=== PATIENT | female | born 2000 | race Caucasian/White ===

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

== ENCOUNTER 2021-04-26 09:48 | Emergency (ER) | payer OTHER, SELFPAY ==
[2021-04-26] VITALS (14 sets, daily range): BP systolic 87–107; BP diastolic 53–63; PULSE 64–110; RESP 14–26; TEMP 36.3–36.6; O2SAT 95–100
--- NOTE | ~2021-04-26 | XR_ITS ---
XR chest 2V DATE: 04/26/2021 10:35 INDICATION: Chest pain starting this morning; 20 weeks patient. TECHNIQUE: PA and lateral views COMPARISON: 01/17/2020 CT pulmonary scan 01/17/2020 portable AP chest FINDINGS: Normal heart size. No hilar or mediastinal enlargement. No pulmonary infiltrate or consolid ation, pleural effusion or pulmonary vascular congestion or pneumothorax is detected. IMPRESSION: No active cardiopulmonary disease Reviewed, dictated and finalized at location A. L ROLLER
--- NOTE | 2021-04-26 09:59 | PC.NURSE ---
called ob Noy states she will be over to monitor pt.
--- NOTE | 2021-04-26 10:01 | ECG_ITS ---
Measurements Intervals [place] Rate: 79 P: 32 MN: 132 QRS: 45 QRSD: 73 T: 30 QT: 350 QTc: 402 Interpretive Statements SINUS RHYTHM WITH MARKED SINUS ARRHYTHMIA BORDERLINE ECG Electronically Signed On 04-26-2021 10:07:07 [employer] by Pradip Monaco D.O.
[2021-04-26 10:17] LABS: Basophils Absolute Auto 0.1 K/mm3 (0.0-0.1); Basophils Percent Auto 0.6 % (0.2-1.2); Eosinophils Absolute Auto 0.3 K/mm3 (0-0.3); Eosinophils Percent Auto 1.8 % (0-4.4); Hematocrit 32.5 % (37.0-47.0); Hemoglobin 10.6 g/dL (12.0-15.0); Immature Granulocyte Absolute 0.23 K/mm3 (0.00-0.031); Immature Granulocyte Percent A 1.6 % (0-0.5); Lymphocytes Absolute Auto 3.16 K/mm3 (0.9-3.2); Lymphocytes Percent Auto 21.5 % (18.3-44.2); Mean Corpuscular HGB Conc 32.6 g/dl (32-36); Mean Corpuscular Hemoglobin 27.8 pg (26-34); Mean Corpuscular Volume 85.3 fl (80-100); Monocytes Absolute Auto 1.1 K/mm3 (0.1-0.6); Monocytes Percent Auto 7.2 % (2.6-8.5); Neutrophils Absolute Auto 9.9 K/mm3 (1.3-6.7); Neutrophils Percent Auto 67.3 % (45.5-73.1); Platelet Count Result 249 k/mm3 (150-375); Red Blood Count 3.81 M/mm3 (4.2-5.4); White Blood Count 14.7 K/mm3 (4.5-10.0)
--- NOTE | 2021-04-26 10:20 | ED.CHESTPAIN ---
HPI - Chest Pain General Chief Complaint: Chest Pain Stated Complaint: 20 weeks preg/abd pain Time Seen by Provider: 04/26/21 10:02 Source: patient Mode of arrival: ambulatory Limitations: no limitations History of Present Illness HPI narrative: Patient is a 21-year-old female, at 20 weeks, complaining of upper abdominal pain accompanied by substernal chest pain, 6 out of 10, dull, nonradiating after her dog jumped on her this morning. Patient does states that her chest pain has been ongoing, intermittent, since she had COVID 1 month ago. Patient states that she has had no complications during and has had care Related Data Home Medications Medication Instructions Recorded Confirmed citalopram 20 mg tablet 20 mg PO DAILY tablet 01/20/21 02/06/21 norethindrone (contraceptive) 0.35 0.35 mg PO DAILY tablet 01/20/21 02/06/21 mg tablet Allergies Allergy/AdvReac Type Severity Reaction Status Date / Time No Known Allergies Allergy Verified 01/20/21 07:57 Review of Systems Review of Systems: All systems reviewed & are unremarkable except as noted in HPI and below Constitutional: Constitutional: Denies body ache(s), Denies chills, Denies excessive sweating, Denies fatigue, Denies fever(s), Denies headache(s), Denies lethargy, Denies malaise, Denies weakness and Denies weight loss Eyes: Eyes: Denies blurry vision, Denies change in vision and Denies loss of vision ENT: Denies dizziness, Denies ear discharge, Denies headache(s), Denies lip swelling, Denies epistaxis, Denies nasal congestion, Denies neck pain, Denies throat swelling and Denies tongue swelling Cardiovascular: Cardiovascular: Denies diaphoresis, Denies rapid heart rate, Denies edema, Denies irregular heart rhythm, Denies lightheadedness and Denies palpitations Respiratory: Respiratory: Denies chest congestion, Denies cough and Denies hemoptysis Gastrointestinal: Gastrointestinal: Denies melena, Denies hematochezia, Denies diarrhea, Denies nausea, Denies vomiting and Denies hematemesis Musculoskeletal: Musculoskeletal: Denies abnormal gait, Denies deformity, Denies joint swelling, Denies limited range of motion, Denies neck pain and Denies numbness Neurologic: Denies Abnormal speech present, Denies abnormal gait, Denies confusion, Denies dizziness, Denies headache(s), Denies focal weakness, Denies loss of vision, Denies numbness, Denies Other visual disturbances, Denies Sensory deficit (Neuro) and Denies weakness Psychiatric: Psychiatric: Denies confusion, Denies depression, Denies auditory hallucinations, Denies homicidal ideation and Denies suicidal ideation Endocrine: Endocrine: Denies cold intolerance, Denies excessive sweating, Denies fatigue, Denies heat intolerance and Denies palpitations Hematologic/Lymphatic: Hematologic/Lymphatic: Denies easy bleeding and Denies easy bruising Allergic/Immunologic: Allergic/Immunologic: Denies lip swelling, Denies throat swelling and Denies tongue swelling PMFSH Past Medical History Medical History Complex regional pain syndrome Ganglion cyst of foot Surgical History Surgical History H/O section Family History Family History Sibling Migraines ADHD Asthma Hypermobility of joint Unknown Diabetes mellitus Grandparent Heart disease Social History Social History Smoking status: Never smoker Alcohol intake: current Substance use: never Gender identity (if verbalized by the patient): Female Spiritual care concerns: No Comments Past medical history: Social history: Non-smoker, no EtOH or drug use Exam Const: General: cooperative, healthy appearing, comfortable, no acute distress, well developed, alert and awake; No confusion
[2021-04-26 10:27] LABS: Alanine Aminotransferase 10 U/L (4-35); Albumin Level 3.7 g/dL (3.5-5.1); Alkaline Phosphatase 79 U/L (38-126); Anion Gap 5 mmol/L (8-16); Aspartate Amino Transferase 18 U/L (14-36); Bilirubin,Total 0.2 mg/dL (0.2-1.3); Blood Urea Nitrogen 5 mg/dL (7-17); Calcium 9.1 mg/dL (8.4-10.2); Carbon Dioxide 23 mmol/L (22-30); Chloride 104 mmol/L (98-107); Estimated Glomerular Filt Rate > 60; Glucose 81 mg/dL (65-110); Lipase 37 U/L (23-300); Potassium 3.9 mmol/L (3.4-5.0); Sodium 132 mmol/L (137-145)
[2021-04-26 10:32] LABS: INR 0.9; Prothrombin Time 12.4 Seconds (11.1-14.7)
[2021-04-26 10:33] LABS: Partial Thromboplastin Time 24.4 SECONDS (22.3-36.8)
[2021-04-26 10:39] LABS: Troponin I < 0.012 ng/mL (0.000-0.034)
[2021-04-26] MEDS: SODIUM CHLORIDE 0.9% IV 1,000 ML 999 ML IV CONT (11:33)
== END 2021-04-26 14:00 | disposition home or self-care (01) ==
PROVIDERS: Emergency Provider Emergency Medicine; PCP Family Medicine
DX: O9A.212 Injury, poisoning and certain other consequences of external causes complicating pregnancy, second trimester (principal); R10.10 Upper abdominal pain, unspecified; O26.892 Other specified pregnancy related conditions, second trimester; R07.89 Other chest pain; Z86.16 Personal history of COVID-19; R94.31 Abnormal electrocardiogram [ECG] [EKG]; Z3A.20 20 weeks gestation of pregnancy; W54.1XXA Struck by dog, initial encounter
CPT/HCPCS: 36415; 71046; 80053; 83690; 84484; 85025; 85610; 85730; 93005; 96360; 99284; J7030

== ENCOUNTER 2021-05-30 14:52 | Outpatient (CLI) | payer OTHER, SELFPAY ==
--- NOTE | 2021-05-30 | ECG_ITS ---
Measurements Intervals Ralph Rate: 102 P: 27 NJ: 146 QRS: 45 QRSD: 72 T: 24 QT: 318 QTc: 415 Interpretive Statements SINUS TACHYCARDIA ABNORMAL RHYTHM ECG COMPARED TO ECG 04/26/2021 10:03:22 SINUS TACHYCARDIA NOW PRESENT Electronically Signed On 05-31-2021 11:43:09 CDT by Judith Keith M.D.
== END 2021-05-30 14:53 | disposition home or self-care (01) ==
LOC: ANHCARD 14:55
PROVIDERS: PCP Family Medicine; Visit Provider Obstetrics & Gynecology
DX: O99.412 Diseases of the circulatory system complicating pregnancy, second trimester (principal); Z3A.25 25 weeks gestation of pregnancy
CPT/HCPCS: 93005

== ENCOUNTER 2021-06-28 12:38 | Outpatient (RCR) | payer OTHER, SELFPAY ==
[2021-06-28 13:50] VITALS: BP 93/56; PULSE 113
== END 2021-07-25 08:20 | disposition home or self-care (01) ==
LOC: ANHOBOP 12:38
PROVIDERS: PCP Family Medicine; Visit Provider Obstetrics & Gynecology
DX: Z36.89 Encounter for other specified antenatal screening (principal)
CPT/HCPCS: 59025

== ENCOUNTER 2021-08-17 22:42 | Inpatient (IN) | payer OTHER, SELFPAY ==
--- NOTE | ~2021-08-17 | US_ITS ---
EXAMINATION: US OB limited w BPP DATE: 08/18/2021 08:20 CDT INDICATION: Evaluate well-being. Abdomen pain. TECHNIQUE: Real-time transabdominal obstetric ultrasound. FINDINGS: No prior studies for comparison. There is a single living fetus in vertex presentation. The placenta is anterior without placenta pre via. DALJIT is 8.35 cm (normal range for gestational age is 7.7-24.9 cm). cardiac activity and movement is noted with a heart rate of beats per minute. Biophysical profile: breathin of 2 movement: 2 of 2 tone: 2 of 2 Amniotic flud pocket: 2 of 2 Total score: 8 of 8 IMPRESSION: 1. Single living intrauterine in vertex presentation. 2: Total biophysical profile score of 8/8. 3: Normal DALJIT measures 8.35 cm Reviewed, dictated and finalized at location A.
--- NOTE | ~2021-08-17 | US_ITS ---
EXAMINATION: US renal BI DATE: 08/20/2021 09:29 INDICATION: Back pain, leukocytosis, urinary tract infection TECHNIQUE: Multiple grayscale and Doppler ultrasound images of the kidneys were obtained. COMPARISON: None. FINDINGS: The right kidney measures 12.6 x 6.4 x 6.5 cm. The left kidney measures 12.5 x 4.9 x 5.1 cm . No definite urolithiasis is seen. The kidneys demonstrate normal parenchymal echogenicity. Resistiv e indices in the kidneys are elevated. There is moderate bilateral hydronephrosis. The bladder is nor mal. IMPRESSION: 1. Moderate bilateral hydronephrosis with elevated resistive indices in the kidneys. No definite urol ithiasis identified. Reviewed, dictated and finalized at location A. IMPRESSION: 1. Moderate bilateral hydronephrosis with elevated resistive indices in the kid neys. No definite urolithiasis identified.
[2021-08-17 23:00] VITALS: TEMP 37.6
[2021-08-17 23:30] VITALS: BP 111/62; PULSE 122
[2021-08-17 23:39] VITALS: TEMP 37.6
[2021-08-18] VITALS (84 sets, daily range): BP systolic 92–140; BP diastolic 37–122; PULSE 100–138; RESP 16–20; TEMP 36.3–37.4; O2SAT 95–100
[2021-08-18 00:30] LABS: Appearance Urine Clear (Clear); Bilirubin Urine Negative (Negative); Color Urine Yellow (Yellow); Glucose Urine UA Negative (Negative); Ketones Urine 4+ mg/dL (Negative); Leukocyte Esterase Ur 3+ LEU/UL (Negative); Nitrate Urine Positive (Negative); Protein Urine Trace mg/dL (Negative); Specific Grav Ur 1.015 (1.001-1.035); Urobilinogen Urine 0.2 mg/dL (<2.0)
[2021-08-18 00:35] LABS: Bacteria Urine Trace /hpf; Mucus Urine Rare /lpf; Squamous Epithelial Cell Urine Many /hpf (Few); WBC Urine >75 /hpf
[2021-08-18 00:36] LABS: Add Urine Microscopic? YES; Blood Urine Trace (Negative)
[2021-08-18] MEDS: ONDANSETRON INJ 4 MG/2 ML VIAL IV PUSH (00:36)
[2021-08-18] MEDS: LACTATED RINGERS 1,000 ML 999 ML IV CONT ×2 (00:37→01:29)
[2021-08-18] MEDS: NITROFURANTOIN MONOHYD MACROCR 100 MG CAP PO (01:13)
[2021-08-18] MEDS: ACETAMINOPHEN 500 MG TABLET 1000 MG PO (01:28)
[2021-08-18] MEDS: fentaNYL CITRATE INJ (*CRX) 100 MCG/2 ML VIAL 50 MCG IV PUSH ×2 (02:47→05:57)
[2021-08-18] MEDS: BETAMETHASONE SOD PHOS/ACETATE 30 MG/5 ML VIAL 12 MG IM (02:49)
[2021-08-18] MEDS: LACTATED RINGERS 1,000 ML 125 ML IV CONT ×2 (02:50→11:10)
[2021-08-18] MEDS: HYDROcodone/acetaminophen (*CRX) 5-325 MG TABLET 1 TAB PO ×2 (08:34→19:34)
[2021-08-18] MEDS: ceFAZolin 2 GM/D5W 50 ML 2 GM/50 ML BAG IVPB (08:34)
[2021-08-18 09:24] LABS: Hematocrit 24.1 % (37.0-47.0); Mean Corpuscular Hemoglobin 19.7 pg (26-34); Mean Platelet Volume 10.8 fl (7.4-10.4); Platelet Count Result 238 k/mm3 (150-375); Red Cell Distribution Width 21.3 % (11.5-14.5); White Blood Count 12.1 K/mm3 (4.5-10.0)
[2021-08-18 09:32] LABS: Hemoglobin 6.5 g/dL (12.0-15.0)
[2021-08-18 09:55] LABS: Anisocytosis 2+ (NORMAL); Band Neutrophils Percent 14 % (0-6); Hypochromasia 2+ (NORMAL); Lymphocytes Absolute Manual 2.05 K/mm3 (1.1-4.5); Monocytes Absolute Manual 1.21 K/mm3 (0.1-0.90); Monocytes Percent Manual 10 % (3-9); Neutrophils Absolute Manual 8.83 K/mm3 (1.7-7.2); Neutrophils Percent Manual 59 % (46-73); Ovalocytes 1+ (NORMAL); Platelet Estimate Adequate (Adequate); Poikilocytosis 2+ (NORMAL); Total Cells Counted 100
[2021-08-18] MEDS: FERROUS SULFATE 324 MG TABLET PO (11:27)
[2021-08-18] MEDS: MULTIVIT/MIN/PREN/FOL AC/IRON TABLET 1 TAB PO (11:27)
[2021-08-18] MEDS: SODIUM CHLORIDE 0.9% IV 250 ML 30 ML IV CONT (11:47)
--- NOTE | 2021-08-18 11:52 | PM.IMHP ---
H&P: HPI History of Present Illness Date/Time: 08/18/21 11:52 Chief Complaint: Pain Narrative: this is a 21-year-old 2 para 1 whose last menstrual period is unknown, EDC is 09/10/2021 confirmed by 8 week ultrasound presents at 36 and 5 7th weeks gestation with back pain. She has a history of a section and plans repeat. She did have a COVID infection was and vaccinated but did well through that. She will testing has been normal. She is positive for group B strep wanted remission in her hemoglobin was noted be in the 6 is and she is receiving 2 doses of ampicillin. Antibiotics were started as her white count is elevated and urine was consistent with pyelonephritis. [facility] Past Medical History Medical History Complex regional pain syndrome Ganglion cyst of foot Surgical History Surgical History H/O section Family History Family History Sibling Hypermobility of joint Migraines ADHD Asthma Seizures Unknown No problems noted. Grandparent Colon cancer Heart disease Social History Social History Smoking status: Never smoker Alcohol intake: current Substance use: never Gender identity (if verbalized by the patient): Female Spiritual care concerns: No Meds Home Medications and Allergies Home Medications Medication Instructions Recorded Confirmed Type ferrous sulfate 325 mg (65 mg 325 mg PO DAILY 08/08/21 08/08/21 History iron) tablet prenat.vits,josselin,mvg-eewt-vmdvk 1 tablet PO DAILY 08/08/21 08/08/21 History Allergies Allergy/AdvReac Type Severity Reaction Status Date / Time No Known Allergies Allergy Verified 08/08/21 13:35 Vital Signs Vital Signs - 24 hr 08/17/21 23:00 08/17/21 23:30 08/18/21 00:00 Temperature 99.7 F H Pulse Rate 122 H 137 H Blood Pressure 111/62 102/46 L Pulse Oximetry Oxygen Delivery 08/18/21 00:31 08/18/21 03:02 08/18/21 03:22 Temperature 99.4 F Pulse Rate 100 117 H Blood Pressure 140/122 H 107/41 L Pulse Oximetry Oxygen Delivery 08/18/21 05:51 08/18/21 06:10 08/18/21 08:40 Temperature 97.5 F L 97.8 F Pulse Rate 112 H Blood Pressure 92/45 L Pulse Oximetry Oxygen Delivery 08/18/21 08:33 08/18/21 11:46 08/18/21 11:47 Temperature 97.4 F L Pulse Rate 119 H Blood Pressure 106/42 L Pulse Oximetry 96 Oxygen Delivery 08/18/21 11:52 08/17/21 23:39 08/17/21 23:39 Temperature 99.7 F H Pulse Rate Blood Pressure Pulse Oximetry 98 Oxygen Delivery Room Air Room Air Exam Const: General: cooperative, healthy appearing, alert and awake Nutritional Appearance: cachectic Orientation/consciousness: oriented to person, oriented to place and oriented to time GI: Inspection: normal to inspection and other ( Gravid soft uterus) Auscultation: normal bowel sounds Other: biophysical profile is 8/8. heart tones are reassuring with rare contractions : External Female Exam: normal external appearance Speculum Exam - Vagina: normal appearance of the vagina Speculum Exam - Cervix: Cervical os closed OB/external & speculum: Deferred OB/external & speculum exam H&P: Results Labs Labs: Short CBC 08/18/21 Range/Units 09:13 WBC 12.1 H (4.5-10.0) K/mm3 Hgb 6.5 L* D (12.0-15.0) g/dL Hct 24.1 L (37.0-47.0) % Plt Count 238 (150-375) k/mm3 Urine 08/17/21 Range/Units 23:31 Urine Color Yellow (Yellow) Urine Appearance Clear (Clear) Urine pH 7.0 (5.0-9.0) Ur Specific [place] 1.015 (1.001-1.035) Urine Protein Trace (Negative) mg/dL Urine Glucose (UA) Negative (Negative) mg/dL Assessment and Plan Assessment and plan (1) Current with history of pre-term lab
[2021-08-18] MEDS: TUBING, BLOOD PLUM PUMP TUBING 1 EACH XX (16:33)
[2021-08-19] VITALS (97 sets, daily range): BP systolic 96–118; BP diastolic 41–59; PULSE 75–125; RESP 14–20; TEMP 36.3–37.1; O2SAT 93–99
[2021-08-19] MEDS: LACTATED RINGERS 1,000 ML 125 ML IV CONT ×3 (00:04→23:25)
[2021-08-19] MEDS: HYDROcodone/acetaminophen (*CRX) 5-325 MG TABLET 1 TAB PO ×4 (04:57→17:06)
[2021-08-19 05:10] LABS: Hematocrit 23.6 % (37.0-47.0); Hemoglobin 7.1 g/dL (12.0-15.0); Mean Corpuscular HGB Conc 30.1 g/dl (32-36); Mean Corpuscular Hemoglobin 22.8 pg (26-34); Mean Corpuscular Volume 75.6 fl (80-100); Mean Platelet Volume 10.6 fl (7.4-10.4); Platelet Count Result 205 k/mm3 (150-375); Red Blood Count 3.12 M/mm3 (4.2-5.4); Red Cell Distribution Width 22.1 % (11.5-14.5); White Blood Count 13.4 K/mm3 (4.5-10.0)
--- NOTE | 2021-08-19 08:59 | PM.OBPNVD ---
OB - PN: Subj Subjective Date/time seen: 08/19/21 08:59 Patient comments: pain well controlled OB - PN: Obj Data Labs CBC & Chem 7: 08/19/21 04:35 Labs: Laboratory Results - last 24 hr 08/18/21 08/18/21 08/19/21 09:13 10:07 04:35 WBC 12.1 H 13.4 H RBC 3.30 L 3.12 L Hgb 6.5 L* D 7.1 L Hct 24.1 L 23.6 L MCV 73.0 L 75.6 L MCH 19.7 L 22.8 L D MCHC 27.0 L 30.1 L RDW 21.3 H 22.1 H Plt Count 238 205 MPV 10.8 H 10.6 H Immature Gran % (Auto) Not Reportable Neut % (Auto) Not Reportable Lymph % (Auto) Not Reportable [place] % (Auto) Not Reportable Eos % (Auto) Not Reportable Baso % (Auto) Not Reportable Lymph # (Auto) Not Reportable [place] # (Auto) Not Reportable Eos # (Auto) Not Reportable Baso # (Auto) Not Reportable Abs Immat Gran (auto) Not Reportable Absolute Neuts (auto) Not Reportable Absolute Nucleated RBC Not Reportable Total Counted 100 Neutrophils % (Manual) 59 Band Neutrophils % 14 H Lymphocytes % (Manual) 17.0 L Monocytes % (Manual) 10 H Nucleated RBC % Not Reportable Abs Neuts (Manual) 8.83 H Abs Lymphs (Manual) 2.05 Abs Monocytes (Manual) 1.21 H Platelet Estimate Adequate Hypochromasia 2+ Poikilocytosis 2+ Anisocytosis 2+ Ovalocytes 1+ Blood Type O Positive Antibody Screen Negative Crossmatch See Detail OB - PN A/P Assessment and Plan (1) Pyelonephritis affecting : Code(s): O23.00 - Infections of kidney in , unspecified trimester Status: Acute (2) Anemia: Code(s): D64.9 - Anemia, unspecified Status: Acute Plan 37 weeks with pyelo and anemia Plan Comments: will transfuse 2 more units and continue abx Time Spent With Patient Time: Total time spent is greater than 50% in coordination of care (as documented) at patient's floor/unit and/or counseling patient:
[2021-08-19] MEDS: MULTIVIT/MIN/PREN/FOL AC/IRON TABLET 1 TAB PO (09:01)
[2021-08-19] MEDS: FERROUS SULFATE 324 MG TABLET PO (09:01)
[2021-08-20] VITALS (24 sets, daily range): BP systolic 109–127; BP diastolic 50–72; PULSE 104–119; RESP 18; TEMP 36.7–37.1; O2SAT 94–97; BMI 27.1
[2021-08-20] MEDS: HYDROcodone/acetaminophen (*CRX) 5-325 MG TABLET 1 TAB PO ×2 (00:05→13:57)
[2021-08-20] MEDS: fentaNYL CITRATE INJ (*CRX) 100 MCG/2 ML VIAL 50 MCG IV PUSH ×4 (04:46→23:14)
[2021-08-20 05:02] LABS: Hematocrit 30.3 % (37.0-47.0); Hemoglobin 9.3 g/dL (12.0-15.0); Mean Corpuscular HGB Conc 30.7 g/dl (32-36); Mean Corpuscular Volume 78.3 fl (80-100); Platelet Count Result 188 k/mm3 (150-375); Red Blood Count 3.87 M/mm3 (4.2-5.4); Red Cell Distribution Width 23.6 % (11.5-14.5); White Blood Count 16.1 K/mm3 (4.5-10.0)
[2021-08-20] MEDS: cefTRIAXone 1 GM in SODIUM CHLORIDE 0.9% IV 100 ML 200 ML IVPB (05:15)
[2021-08-20] MEDS: LACTATED RINGERS 1,000 ML 125 ML IV CONT ×2 (08:28→17:16)
--- NOTE | 2021-08-20 08:30 | PC.NURSE ---
Dr. Her at bedside. Assessed pt and discussed plan of care with pt. Tracing reviewed.
--- NOTE | 2021-08-20 08:46 | PM.OBPNVD ---
OB - PN: Subj Subjective Date/time seen: 08/20/21 08:46 Interval history: Still has back pain, notices occasional contractions. Good movement. Has required IV Fentanyl in addition to PO meds. AVSS NST reactive TOCO: contractions occasionally ABD soft, nontender, gravid EXT nontender Back: Mild R CVA tenderness. Hgb improved WBC 16.1K Urine culture shows E. coli, GBS. Sensitivities still pending. A: Pyelonephritis, afebrile, but still with back pain. P: Have switched from Ancef to Rocephin to broaden coverage. Awaiting sensitivities. Check renal ultrasound. OB - PN: Obj Data Labs CBC & Chem 7: 08/20/21 04:54 Labs: Laboratory Results - last 24 hr 08/18/21 08/20/21 08/20/21 10:07 04:53 04:54 WBC 16.1 H RBC 3.87 L Hgb 9.3 L Hct 30.3 L MCV 78.3 L MCH 24.0 L D MCHC 30.7 L RDW 23.6 H Plt Count 188 MPV 10.0 Blood Type O Positive Antibody Screen Negative KB Hemoglobin Negative Crossmatch See Detail
--- NOTE | 2021-08-20 10:26 | PC.NURSE ---
Called Dr. Her with ultrasound report. No new orders received.
[2021-08-20] MEDS: MULTIVIT/MIN/PREN/FOL AC/IRON TABLET 1 TAB PO (13:49)
[2021-08-20] MEDS: FERROUS SULFATE 324 MG TABLET PO (13:49)
[2021-08-21] MEDS: LACTATED RINGERS 1,000 ML 125 ML IV CONT (01:21)
[2021-08-21] MEDS: fentaNYL CITRATE INJ (*CRX) 100 MCG/2 ML VIAL 50 MCG IV PUSH ×2 (01:25→03:53)
[2021-08-21 03:51] VITALS: PULSE 109; O2SAT 94
[2021-08-21 03:52] VITALS: BP 122/60; PULSE 109
[2021-08-21] MEDS: HYDROcodone/acetaminophen (*CRX) 5-325 MG TABLET 1 TAB PO (03:54)
[2021-08-21 03:56] VITALS: PULSE 102; O2SAT 94
[2021-08-21 04:01] VITALS: BP 124/63; PULSE 100; PULSE 108; O2SAT 92
[2021-08-21 04:06] VITALS: PULSE 107; O2SAT 92
[2021-08-21] MEDS: cefTRIAXone 1 GM in SODIUM CHLORIDE 0.9% IV 100 ML 200 ML IVPB (05:42)
[2021-08-21] MEDS: MULTIVIT/MIN/PREN/FOL AC/IRON TABLET 1 TAB PO (08:40)
[2021-08-21] MEDS: FERROUS SULFATE 324 MG TABLET PO (08:40)
[2021-08-21 08:42] VITALS: BP 110/55; PULSE 96; TEMP 36.6
--- NOTE | 2021-08-21 09:30 | PC.NURSE ---
Dr. Her at bedside to assess pt and discuss plan of care with pt. May D/C home. Orders for no NST needed before D/C.
--- NOTE | 2021-08-21 09:30 | PM.OBPNVD ---
OB - PN: Subj Subjective Date/time seen: 08/21/21 09:30 Interval history: Back kiki much better. AVSS NST reactive TOCO: contractions occasionally ABD soft, nontender, gravid EXT nontender Back: Mild R CVA tenderness, improved from yesterday. Urine E.coli sensitive to ceftriaxone and to ampicillin. Renal ultrasound showed bilateral moderate hydronephrosis. A: Pyelonephritis, clinically improving. P: Home on ampicillin, [place]. F/u tomorrow in office. OB - PN: Obj Data Labs CBC & Chem 7: 08/20/21 04:54 Imaging Radiologist's impression: Impressions Renal Ultrasound 08/20/21 09:37 IMPRESSION: 1. Moderate bilateral hydronephrosis with elevated resistive indices in the kidneys. No definite urolithiasis identified. OB - PN A/P Time Spent With Patient Time: Total time spent is greater than 50% in coordination of care (as documented) at patient's floor/unit and/or counseling patient:
--- NOTE | 2021-08-23 11:44 | PM.OBDSVD ---
DS: Admitting Diagnosis Discharge Date 08/21/21 Admitting Diagnosis IUP at 36 weeks Pyelonephritis Anemia DS: Discharge Diagnosis Discharge Diagnosis (1) Anemia: Code(s): D64.9 - Anemia, unspecified Status: Acute (2) Pyelonephritis affecting : Code(s): O23.00 - Infections of kidney in , unspecified trimester Status: Acute OB - DS: Summary Hospital Course Hospital Course: IUP at 36 weeks, admitted for pyelonephritis and anemia. Received PRBC and antibiotics. Able to go home on oral ampicillin and [place]. OB Procedures : NST OB Procedures Intrapartum: Other (Not delivered. Still .) OB Procedures: : None Time Spent with Patient Time attestation: Total time spent providing and/or coordinating discharge services: Discharge Plan Discharge Attending physician on discharge: Noel Valadez Consulting providers: Cheo Driscoll ; Noel Valadez ; Prashanth Long Discharging Clinician: Eben Her Patient Disposition: Home, Self-Care Activity: as tolerated Diet: regular Discharge Instructions: OB ANTEPARTUM DISCHARGE INSTRUCTIONS This information is given to help you properly care for yourself at home after your discharge from the hospital. Follow these instructions until your doctor tells you otherwise. DIET: Eat Three Well Balanced Meals per Day Drink at Least Eight 8-Ounce Glasses of Caffeine-Free Beverages Daily Additional Diet Instructions: ACTIVITY: As Tolerated Increase Periods of Rest Additional Activity Instructions: RETURN TO LABOR AND DELIVERY IF YOU HAVE: Any Change In Baby's Normal Movement Pattern Any Leakage of Fluid Contractions 3-5 Minutes Apart with Increasing Intensity Vaginal Bleeding Additional Reasons to Return to Labor and Delivery: Contractions may feel like abdominal pain, tightening, cramping, pressure, back ache, or thigh ache. OTHER INSTRUCTIONS: FOLLOW-UP CARE: Keep Next Scheduled Appointment To see in/on Valuables released to patient or family? Medications from home returned to patient? I Acknowledge Receipt of and Understand the Above Instructions IF YOU HAVE ANY QUESTIONS REGARDING THESE INSTRUCTIONS, PLEASE CALL [phone]. IF PROBLEMS ARISE, CALL YOUR PROVIDER. IF EMERGENCY CARE IS NEEDED, [facility]S EMERGENCY ROOM IS AVAILABLE 24 HOURS A DAY. Patient Instructions: Antibiotic Form Stand Alone Forms: General Discharge Information Follow-up/Referrals: Noel Valadez MD [Physician] - Keep Reg. Scheduled Appt. Discharge Medications: New ampicillin 500 mg capsule 500 mg PO Q6H Qty: 28 0RF hydrocodone-acetaminophen 5-325 mg tablet 1 tablet PO Q6H PRN (Reason: pain) Qty: 30 0RF ferrous sulfate 325 mg (65 mg iron) Tablet 324 mg PO DAILY@0800 0RF KPN Tablet 1 tab PO QAM 0RF Continued ferrous sulfate 325 mg (65 mg iron) Tablet 325 mg PO DAILY prenat.vits,josselin,[id number] Tablet 1 tablet PO DAILY Date of admission: 08/18/21 12:54 Primary Care Provider: Gm Quiles Admitting Provider: Balbir Grissom Attending physician on admission: Eben Her Condition: Stable
== END 2021-08-21 10:00 | disposition home or self-care (01) | DRG 566 ==
LOC: ANHLDR 08-18 05:21 → ANHOBPP 08-18 07:49
PROVIDERS: Obstetrics & Gynecology; Admitting Provider Student in an Organized Health Care Education/Training Program; PCP Family Medicine; Visit Provider Obstetrics & Gynecology
DX: O23.03 Infections of kidney in pregnancy, third trimester (principal); O09.213 Supervision of pregnancy with history of pre-term labor, third trimester; O99.013 Anemia complicating pregnancy, third trimester; B96.20 Unspecified Escherichia coli [E. coli] as the cause of diseases classified elsewhere; Z3A.36 36 weeks gestation of pregnancy
CPT/HCPCS: 36415; 36430; 59025; 76775; 76815; 76819; 81001; 85025; 85027; 85460; 86850; 86900; 86901; 86920; 87077; 87086; 87186; A9270; J0131; J0690; J0696; J0702; J2405; J3010; J7050; J7120; P9016

== ENCOUNTER 2021-09-03 11:18 | Outpatient (CLI) | payer OTHER, SELFPAY ==
[2021-09-03 11:48] LABS: Hematocrit 35.7 % (37.0-47.0); Mean Corpuscular HGB Conc 30.8 g/dl (32-36); Mean Corpuscular Hemoglobin 24.6 pg (26-34); Mean Corpuscular Volume 79.9 fl (80-100); Mean Platelet Volume 9.8 fl (7.4-10.4); Platelet Count Result 209 k/mm3 (150-375); Red Blood Count 4.47 M/mm3 (4.2-5.4); Red Cell Distribution Width 26.6 % (11.5-14.5); White Blood Count 10.3 K/mm3 (4.5-10.0)
[2021-09-05 14:41] LABS: Rapid Plasma Reagin Non-Reactive (NonReactive)
== END 2021-09-03 11:19 | disposition home or self-care (01) ==
LOC: ANHLAB 11:20
PROVIDERS: PCP Family Medicine; Visit Provider Obstetrics & Gynecology
DX: Z34.93 Encounter for supervision of normal pregnancy, unspecified, third trimester (principal); Z3A.00 Weeks of gestation of pregnancy not specified
CPT/HCPCS: 36415; 85027; 86592; 86850; 86900; 86901

== ENCOUNTER 2021-09-05 05:20 | Inpatient (IN) | payer OTHER, SELFPAY ==
--- NOTE | 2021-08-08 13:55 | PC.NURSE ---
Verified with OR schedule and patient--C/S on 09/05/21 at 0730 Patient given requisition for lab drawn
--- NOTE | 2021-09-04 08:51 | P.HP_ITS ---
H&P: HPI History of Present Illness Date/Time: 09/04/21 08:51 Chief Complaint: Term with previous section Narrative: This formed female 2 para whose last menstrual period with EDC is confirmed by 8 week ultrasound presents at 39 weeks gestation for repeat section. The has been uncomplicated. 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 [facility] Past Medical History Medical History Complex regional pain syndrome Ganglion cyst of foot Surgical History Surgical History H/O section Family History Family History Sibling Hypermobility of joint Migraines ADHD Asthma Seizures Unknown No problems noted. Grandparent Colon cancer Heart disease Social History Social History Smoking status: Never smoker Alcohol intake: current Substance use: never Gender identity (if verbalized by the patient): Female Spiritual care concerns: No Meds Home Medications and Allergies Home Medications Medication Instructions Recorded Confirmed Type ferrous sulfate 325 mg (65 mg 325 mg PO DAILY 08/08/21 08/08/21 History iron) tablet prenat.vits,josselin,fdx-[id number] 1 tablet PO DAILY 08/08/21 08/08/21 History ampicillin 500 mg capsule 500 mg PO Q6H #28 caps 08/21/21 Rx ferrous sulfate 325 mg (65 mg 324 mg PO DAILY@0800 08/21/21 Rx iron) tablet hydrocodone 5 mg-acetaminophen 325 1 tablet PO Q6H PRN pain #30 tabs 08/21/21 Rx mg tablet prenat.vits,josselin,myc-znjh-yxpbh 1 tab PO QAM 08/21/21 Rx (KPN tablet) Allergies Allergy/AdvReac Type Severity Reaction Status Date / Time No Known Allergies Allergy Verified 08/08/21 13:35 Exam : External Female Exam: normal external appearance Speculum Exam - Vagina: normal appearance of the vagina Bimanual exam- vagina & uterus: uterine size normal (The uterus was soft and gravid) Assessment and Plan Assessment and plan (1) Anemia: Code(s): D64.9 - Anemia, unspecified Status: Acute (2) Term : Code(s): Z34.90 - Encounter for supervision of normal , unspecified, unspecified trimester Status: Acute Assessment and Plan: Repeat low-transverse section (3) Previous section: Code(s): Z98.891 - History of uterine scar from previous surgery Status: Acute
[2021-09-05] VITALS (55 sets, daily range): BP systolic 66–121; BP diastolic 30–99; PULSE 67–118; RESP 14–18; TEMP 36.2–36.9; O2SAT 96–100; BMI 28.7
[2021-09-05] MEDS: LACTATED RINGERS 1,000 ML 125 ML IV CONT (05:45)
--- NOTE | 2021-09-05 05:46 | LDADM ---
This patient, Janet Dillon, was admitted to Labor/Delivery/Recovery 120 on 09/05/21 at 05:20. Plans for labor, pain management and were discussed with patient. Patient/family oriented to hospital policies and general routines including ID bracelet, bed and alarms, visiting hours, pain management, procedures, bathroom and other care routines, personal items, smoking policy, room service/diet and guest tray routines, infant security routines, and visiting hours. Patient/Family are encouraged to report perceived risks to care and to ask questions if they do not understand what they are told or what they should do. See OBIX for further documentation.
--- NOTE | 2021-09-05 06:50 | WPDHPUPDATE1 ---
History and Physical Update Update Date/Time: 09/05/21 06:50 History and Physical has been reviewed, including an updated exam of the patient. There are NO changes in the patient's condition. Risks, benefits, and alternatives have been discussed and questions answered. Patient agrees to proceed with procedure.
--- NOTE | 2021-09-05 06:56 | P.PNAN_ITS ---
Anes - Initial Pre Proc Eval Procedure: Operation Date: 09/05/21 07:30 Proposed Procedures p Repeat Section - Noel Parson MD Date/Time: 09/05/21 06:56 Surgeon: Noel Parson MD Pre Op Diagnosis: Repeat Patient Data Age: 21 Gender: F Height: 1.4 m Weight: 56 kg Last Vital Signs Pulse 104 H 09/05/21 06:15 BP 107/49 L 09/05/21 06:15 Allergies Allergy/AdvReac Type Severity Reaction Status Date / Time No Known Allergies Allergy Verified 08/08/21 13:35 Home Medications Medication Instructions Recorded Confirmed Type ferrous sulfate 325 mg (65 mg 325 mg PO DAILY 08/08/21 08/08/21 History iron) tablet prenat.vits,josselin,dxd-esps-ayfro 1 tablet PO DAILY 08/08/21 08/08/21 History ampicillin 500 mg capsule 500 mg PO Q6H #28 caps 08/21/21 Rx ferrous sulfate 325 mg (65 mg 324 mg PO DAILY@0800 08/21/21 Rx iron) tablet hydrocodone 5 mg-acetaminophen 325 1 tablet PO Q6H PRN pain #30 tabs 08/21/21 Rx mg tablet prenat.vits,josselin,erj-zexi-jedvh 1 tab PO QAM 08/21/21 Rx (KPN tablet) hydrocodone 5 mg-acetaminophen 325 1 tablet PO Q4H PRN pain #30 tabs 09/05/21 Rx mg tablet Patient hx anesthesia problems: none Family hx anesthesia problems: none Results Review: All pre-operative results and documents have been reviewed as part of the pre- operative evaluation. [facility] Past Medical History Medical History Complex regional pain syndrome Ganglion cyst of foot Surgical History Surgical History H/O section Family History Family History Sibling Hypermobility of joint Migraines ADHD Asthma Seizures Unknown No problems noted. Grandparent Colon cancer Heart disease Social History Social History Smoking status: Former smoker Tobacco type: e-cigarettes/vaping Second hand tobacco smoke exposure: No Alcohol intake: current Substance use: never Gender identity (if verbalized by the patient): Female Spiritual care concerns: No Anes - Eval Final PreProcedure Day of Procedure 09/05/21 06:56 Patient weight: normal Heart: regular rate and rhythm Lungs: clear to auscultation and normal air movement Airway: Mallampati scale class II Neurological: alert and oriented ASA classification: III Anesthetic plan: proceed Anesthesia type and monitoring: regional and standard monitoring Results Review: All pre-operative results and documents have been reviewed as part of the pre- operative evaluation. Informed Consent: The patient's anesthetic plan and its attendant risks and benefits were discussed with the patient/family/POA. Questions were solicited and answers provided to the satisfaction of the patient/family/POA.
[2021-09-05] MEDS: LACTATED RINGERS 1,000 ML 999 ML IV CONT (07:01)
[2021-09-05] MEDS: ceFAZolin 2 GM/D5W 50 ML 2 GM/50 ML BAG IVPB (07:16)
--- NOTE | 2021-09-05 08:01 | W.PM.PROC2 ---
Procedure Note - Detailed Date of Procedure 09/05/21 Pre-op Diagnosis Repeat Post-op Diagnosis Same Procedure Performed Repeat low-transverse section Surgeon Noel Parson MD Anesthesia Spinal Indications a 21-year-old 2 para 1 at 39 and half weeks gestation for repeat section Findings viable female infant 6 lb 15 oz with Apgars of 8 and 9 at 1 and 5 minutes respectively. Description of Procedure The patient is prepped draped in the normal sterile fashion placed in the supine position. Under excellent spinal anesthetic the abdomen was entered in Pfannenstiel fashion. This was progressive layers to the fascia. Fascia incised in the upward outward fashion bilaterally. Underlying muscles sharply dissected prior to peritoneum then elevated by Dodie clamps. This was carried superiorly then inferiorly down the bladder below. Bladder blade was placed bladder flap was formed. Bladder flap laps formed. Bladder blade returned. A low-transverse incision made in the head delivered in the ROSY position. Anterior posterior shoulder delivered spontaneously. Cord clamped x2 and cut and passed off the table with excellent clot cry. Placenta delivered intact manually. Uterus delivered on the abdomen wrapped in a moist towel. After assuring no membranes or debris remained in the uterus, the uterus was closed with continuous running 0 Vicryl from lateral edge lateral edge. This was followed by 2nd imbricating running locking 0 Vicryl from lateral edge to lateral edge. Hemostasis was assured. Ovaries and tubes appeared within normal limits and the uterus returned the abdomen. The hysterotomy incision inspected 1 last time noted be hemostatic. Laps removed and accounted for. Fascia closed with continuous running 0 Vicryl from lateral edge to midline bilaterally. The skin was closed with 4 Monocryl and glue. Blood loss by Q BL was 890 all sponge, needle, instrument counts were correct. There were no immediate complication is Estimated Blood Loss 890 Drains No Packing No Pathology None sent Complications No immediate complications Condition Stable Disposition Floor
[2021-09-05] MEDS: METHYLERGONOVINE MALEATE 0.2 MG/ML VIAL IM (08:13)
[2021-09-05] MEDS: miSOPROStol 200 MCG TABLET 1000 MCG RECTAL (08:18)
--- NOTE | 2021-09-05 08:19 | PM.OBPNVD ---
OB - PN: Subj Subjective Date/time seen: 09/05/21 08:19 Interval history: Cold dizzy patient considering increased blood loss. Total now to 1600. Urine output vital signs are good. Exam shows incision to be intact uterus is firming with Methergine presently placing Cytotec. Digital exam revealed clots and sent uterus these were removed bleeding markedly slowed. We will continue to watch closely. Get stat H&H OB - PN A/P Time Spent With Patient Time: Total time spent is greater than 50% in coordination of care (as documented) at patient's floor/unit and/or counseling patient:
[2021-09-05] MEDS: LACTATED RINGERS 1,000 ML 1000 ML IV CONT (08:37)
--- NOTE | 2021-09-05 09:04 | SUR.OPER ---
0805 clots noted when cleaning pt fundus massage firm, IV fluids with pitocin wide open. 0807 pt continues trickle of blood noted, MD townsend, fundus remains firm. 0811 Dr. Rocio Parson notified of bleeding orders received, will be over to evaluate pt. [address] Rocio Parson at bedside, sterile vaginal exam, clots expressed, bleeding noted to be less. 0818 cytotec given. 0820 bleeding WNL.
[2021-09-05] MEDS: OXYTOCIN 30 UNITS/NS 500 ML 30 UNITS/500 ML BAG 125 UNITS IV CONT (09:30)
[2021-09-05] MEDS: ONDANSETRON INJ 4 MG/2 ML VIAL IV PUSH ×2 (11:01→16:41)
--- NOTE | 2021-09-05 11:06 | OBPPTRN ---
Patient transferred to post room # 288 via stretcher. Support person present. Oriented to unit, room, information board, rooming in, admission packet and security measures. Patient verbalizes understanding.
[2021-09-05 12:27] LABS: Hematocrit 40.4 % (37.0-47.0); Hemoglobin 12.3 g/dL (12.0-15.0)
[2021-09-05] MEDS: KETOROLAC 30 MG/ML VIAL (*BKC) IV PUSH ×2 (12:51→19:32)
[2021-09-05] MEDS: DEXTROSE 5%/0.45% SOD CHL 1,000 ML 125 ML IV CONT (12:52)
[2021-09-06] MEDS: IBUPROFEN 600 MG TABLET PO ×3 (02:15→17:09)
[2021-09-06] MEDS: SIMETHICONE 80 MG TAB.CHEW PO ×3 (02:15→21:14)
[2021-09-06] MEDS: HYDROcodone/acetaminophen (*CRX) 5-325 MG TABLET 1 TAB PO ×2 (02:17→07:27)
[2021-09-06 05:08] VITALS: BP 98/56; PULSE 106; RESP 18; TEMP 36.6; O2SAT 98
[2021-09-06 06:18] LABS: Basophils Absolute Auto 0.1 K/mm3 (0.0-0.1); Basophils Percent Auto 0.5 % (0.2-1.2); Eosinophils Absolute Auto 0.2 K/mm3 (0-0.3); Eosinophils Percent Auto 1.1 % (0-4.4); Hemoglobin 10.1 g/dL (12.0-15.0); Immature Granulocyte Absolute 0.21 K/mm3 (0.00-0.031); Immature Granulocyte Percent A 1.4 % (0-0.5); Lymphocytes Absolute Auto 2.03 K/mm3 (0.9-3.2); Lymphocytes Percent Auto 13.1 % (18.3-44.2); Mean Corpuscular HGB Conc 30.6 g/dl (32-36); Mean Corpuscular Hemoglobin 24.6 pg (26-34); Mean Corpuscular Volume 80.5 fl (80-100); Mean Platelet Volume 10.5 fl (7.4-10.4); Monocytes Absolute Auto 1.5 K/mm3 (0.1-0.6); Monocytes Percent Auto 9.9 % (2.6-8.5); Neutrophils Absolute Auto 11.5 K/mm3 (1.3-6.7); Platelet Count Result 178 k/mm3 (150-375); Red Cell Distribution Width 26.9 % (11.5-14.5); White Blood Count 15.5 K/mm3 (4.5-10.0)
--- NOTE | 2021-09-06 07:16 | P.PNOB_ITS ---
OB - PN: Subj Subjective Date/time seen: 09/06/21 07:16 Interval history: Cold dizzy patient considering increased blood loss. Total now to 1600. Urine output vital signs are good. Exam shows incision to be intact uterus is firming with Methergine presently placing Cytotec. Digital exam revealed clots and sent uterus these were removed bleeding markedly slowed. We will continue to watch closely. Get stat H&H Patient comments: no complaints, pain well controlled and tolerating diet [place] baby status: doing well and nursing well OB - PN: Obj Data Labs CBC & Chem 7: 09/06/21 04:29 Labs: Laboratory Results - last 24 hr 09/05/21 09/06/21 12:13 04:29 WBC 15.5 H RBC 4.10 L Hgb 12.3 10.1 L Hct 40.4 33.0 L MCV 80.5 MCH 24.6 L MCHC 30.6 L RDW 26.9 H Plt Count 178 MPV 10.5 H Immature Gran % (Auto) 1.4 H Neut % (Auto) 74.0 H Lymph % (Auto) 13.1 L [place] % (Auto) 9.9 H Eos % (Auto) 1.1 Baso % (Auto) 0.5 Lymph # (Auto) 2.03 [place] # (Auto) 1.5 H Eos # (Auto) 0.2 Baso # (Auto) 0.1 Abs Immat Gran (auto) 0.21 H Absolute Neuts (auto) 11.5 H Absolute Nucleated RBC 0.0 Nucleated RBC % 0.0 OB - PN A/P Plan day: 1 Plan: routine care Time Spent With Patient Time: Total time spent is greater than 50% in coordination of care (as documented) at patient's floor/unit and/or counseling patient: Time with patient: less than 15 minutes Exam Const: General: cooperative, healthy appearing and comfortable Orientation/consciousness: oriented to person, oriented to place and oriented to time GI: Inspection: normal to inspection, incision (cdi) and scar Percussion: Yes normal to percussion Auscultation: normal bowel sounds
[2021-09-06] MEDS: MULTIVIT/MIN/PREN/FOL AC/IRON TABLET 1 TAB PO (07:29)
[2021-09-06] MEDS: DOCUSATE SODIUM 100 MG CAPSULE PO ×2 (07:29→17:09)
[2021-09-06 08:18] VITALS: BP 85/44; PULSE 89; RESP 18; TEMP 36.5; O2SAT 98
--- NOTE | 2021-09-06 10:25 | WPDANLDPN2 ---
Anes-Prog Note L&D Date/Time: 09/06/21 10:25 Comfortable throughout: section Neuraxial method: spinal Epidural/Spinal procedure site: clean & non-tender Neuro status: Neuro function grossly intact. Cardiovascular status: normal Respiratory status: normal Airway patency: baseline Mental status: baseline Post-Op hydration status: normal Vital Signs: Last Vital Signs Temp 36.5 C 09/06/21 08:18 Pulse 89 09/06/21 08:18 Resp 18 09/06/21 08:18 BP 85/44 L 09/06/21 08:18 Pulse Ox 98 09/06/21 08:18 O2 Del Method Room Air 09/06/21 08:18 Pain score (VAS): 2/10 I/O: Intake & Output 09/05/21 09/06/21 09/06/21 23:59 07:59 15:59 Intake Total 1620 600 Output Total 1850 1100 Balance -230 -500 Post-procedural complaints: none Patient feedback: Patient satisfied with anesthetic care.
--- NOTE | 2021-09-06 10:26 | WPDANLDNPN2 ---
Anes-Prog Note L&D-Neuraxial Date/Time: 09/06/21 10:26 Neuraxial medications: intrathecal PF morphine Opiod-related complaints: none Patient feedback: Patient satisfied with post-operative pain management.
--- NOTE | 2021-09-06 10:27 | WPDANLDNPN2 ---
Anes-Prog Note L&D-Neuraxial Date/Time: 09/06/21 10:27 Neuraxial medications: intrathecal PF morphine Opiod-related complaints: none Patient feedback: Patient satisfied with post-operative pain management.
[2021-09-06] MEDS: HYDROcodone/acetaminophen (*CRX) 10-325 MG TABLET 1 TAB PO ×4 (10:52→21:14)
--- NOTE | 2021-09-06 13:32 | PC.NURSE ---
[id number] Introductions were made, then consulted with patient to assess needs related to . Mother led the conversation with her experience feeding her so far. Mother works well with her . Encouraged understanding of the benefits of skin to skin (unwrapping infant and placing vertically on her chest), responsive feeding and how to watch for early feeding signs, frequency of feeding on demand about every 8-12 times in 24 hours (every 2-3 hours), milk production, duration of feeding, signs of adequate intake/output and how to record on the feeding sheet. Reviewed positioning and ear, shoulder, hip alignment, supporting the breast, asymmetrical latch (off-center), and leading with the chin with a big open side gape. Mother and maternal mother shares knowledge and experience with history of . Mother became when her 1st was 8 months old. Encouraged assessing latch related to the difference between a versus a 8 month old infant. Mother latched to the right breast and denies discomfort. demonstrates piston sucking and mouth is less than 90 degrees. Reviewed optimal latching and encouraging to latch effectively to breast with big, open, wide gape with deep latch and good positioning to protect the nipple using cross cradle positioning and mother holding her breast to facilitate infants optimal latch. latched optimally to the right breast in cross cradle position. Education given to mother of how to visualize suck/swallow ratios and drinking at the breast. Infant was able to maintain latch without discomfort to mother. Nipple care reviewed with optimal latch and good positioning. Reviewed good handwashing when or touching the breast/nipples to prevent infection. Resources used to facilitate learning were used with the visual handouts/mom and baby guide. Mother voiced understanding of responsive feedings, stimulating with skin to skin, talking to to encourage if it has been 2 -3 hours since the start of the last , to call if infant does not latch or there is discomfort with . Reported to the primary RN.
[2021-09-06 19:52] VITALS: BP 90/56; PULSE 94; RESP 18; TEMP 36.8; O2SAT 99
[2021-09-07] MEDS: SIMETHICONE 80 MG TAB.CHEW PO ×3 (00:05→11:26)
[2021-09-07] MEDS: IBUPROFEN 600 MG TABLET PO ×3 (00:06→11:27)
[2021-09-07] MEDS: HYDROcodone/acetaminophen (*CRX) 10-325 MG TABLET 1 TAB PO ×3 (00:06→05:53)
--- NOTE | 2021-09-07 06:48 | PM.DS ---
DS: Admitting Diagnosis Discharge Date 09/07/2021 Admitting Diagnosis Term /previous section DS: Discharge Diagnosis Discharge Diagnosis (1) Previous section: Code(s): Z98.891 - History of uterine scar from previous surgery Status: Acute (2) Term : Code(s): Z34.90 - Encounter for supervision of normal , unspecified, unspecified trimester Status: Acute DS: Summary Hospital Course Reason for hospitalization: Patient was admitted for repeat section at term Hospital Course: Cathy was admitted for repeat section at term. The procedure was unremarkable. She did have an episode of bleeding directly post delivery however clots were evacuated manually and her postop day 1 hemoglobin remained stable at 10.1. Her hospital course was otherwise unremarkable. She remained afebrile. She was up, voiding without difficulty, ambulating, breast-feeding, generally without complaints. Time Spent with Patient Time attestation: Total time spent providing and/or coordinating discharge services: DS: Data Data Completed and Pending Labs on day of discharge: Labs from last 24 hours 09/06/21 04:29 WBC 15.5 H RBC 4.10 L Hgb 10.1 L Hct 33.0 L MCV 80.5 MCH 24.6 L MCHC 30.6 L RDW 26.9 H Plt Count 178 MPV 10.5 H Immature Gran % (Auto) 1.4 H Neut % (Auto) 74.0 H Lymph % (Auto) 13.1 L [place] % (Auto) 9.9 H Eos % (Auto) 1.1 Baso % (Auto) 0.5 Lymph # (Auto) 2.03 [place] # (Auto) 1.5 H Eos # (Auto) 0.2 Baso # (Auto) 0.1 Abs Immat Gran (auto) 0.21 H Absolute Neuts (auto) 11.5 H Absolute Nucleated RBC 0.0 Nucleated RBC % 0.0 Discharge Plan Discharge Attending physician on discharge: Noel Valadez Discharging Clinician: Noel Valadez Patient Disposition: Home, Self-Care Activity: may shower, no straining and pelvic rest Diet: heart healthy Wound Care Instructions: follow printed instructions Patient Instructions: Antibiotic Form, How to Stop Smoking (GEN) Stand Alone Forms: General Discharge Information Follow-up/Referrals: Noel Valadez MD [Physician] - Discharge Medications: New hydrocodone-acetaminophen 5-325 mg tablet 1 tablet PO Q4H PRN (Reason: pain) Qty: 30 0RF Continued ferrous sulfate 325 mg (65 mg iron) Tablet 325 mg PO DAILY prenat.vits,josselin,feb-ufzf-hezct Tablet 1 tablet PO DAILY ampicillin 500 mg capsule 500 mg PO Q6H Qty: 28 0RF hydrocodone-acetaminophen 5-325 mg tablet 1 tablet PO Q6H PRN (Reason: pain) Qty: 30 0RF ferrous sulfate 325 mg (65 mg iron) Tablet 324 mg PO DAILY@0800 0RF KPN Tablet 1 tab PO QAM 0RF Date of admission: 09/05/21 05:20 Primary Care Provider: Gm Quiles Admitting Provider: Noel Valadez Attending physician on admission: Noel Valadez Condition: Stable
--- NOTE | 2021-09-07 06:51 | PM.OBPNVD ---
OB - PN: Subj Subjective Date/time seen: 09/07/21 06:51 Interval history: Cold dizzy patient considering increased blood loss. Total now to 1600. Urine output vital signs are good. Exam shows incision to be intact uterus is firming with Methergine presently placing Cytotec. Digital exam revealed clots and sent uterus these were removed bleeding markedly slowed. We will continue to watch closely. Get stat H&H Patient comments: no complaints and pain well controlled baby status: doing well and nursing well [place] feeding status: exclusively breast feeding OB - PN: Obj Data Labs CBC & Chem 7: 09/06/21 04:29 OB - PN A/P Assessment and Plan (1) Previous section: Code(s): Z98.891 - History of uterine scar from previous surgery Status: Acute Assessment and Plan: Discharge home today. (2) Term : Code(s): Z34.90 - Encounter for supervision of normal , unspecified, unspecified trimester Status: Acute Plan Discharge home. Plan day: 2 Plan: routine care, discharge home and follow up 6 weeks (Four weeks) Time Spent With Patient Time: Total time spent is greater than 50% in coordination of care (as documented) at patient's floor/unit and/or counseling patient: Time with patient: less than 15 minutes
--- NOTE | 2021-09-07 07:00 | PC.NURSE ---
Pt introductions made and plan of care discussed per post op c section, pain management, breast feeding, daily care and pending discharge to home. PT received discharge instructions per one to one discussion, mom baby care guide and demonstrations this shift. PT and father of baby both recipients of such instructions. No barriers to learning identified at this time and pt verbalized understanding of such care.
[2021-09-07 08:25] VITALS: BP 98/49; PULSE 114; RESP 18; TEMP 36.8; O2SAT 99
[2021-09-07] MEDS: MULTIVIT/MIN/PREN/FOL AC/IRON TABLET 1 TAB PO (11:26)
[2021-09-07] MEDS: DOCUSATE SODIUM 100 MG CAPSULE PO (11:26)
[2021-09-07] MEDS: HYDROcodone/acetaminophen (*CRX) 5-325 MG TABLET 1 TAB PO (11:27)
[2021-09-07] MEDS: LANOLIN (LANSINOH) 7.5 GM CREAM 1 APPLIC TOPICAL (11:28)
--- NOTE | 2021-09-07 12:45 | PC.NURSE ---
PT received discharge teaching per protocol and verbalized understanding of such instructions.
--- NOTE | 2021-09-07 13:06 | PC.NURSE ---
PT discharged to home ambulatory accompanied by fob, grandmother and and taken to waiting car. follow up appts confirmed
[2021-09-08 10:34] VITALS: BP 96/52; PULSE 98; RESP 18; TEMP 36.9; O2SAT 100
== END 2021-09-07 13:06 | disposition home or self-care (01) | DRG 540 ==
LOC: ANHLDR 06:18 → ANHOB2 11:49
PROVIDERS: Admitting Provider Obstetrics & Gynecology; PCP Family Medicine; Visit Provider Obstetrics & Gynecology
PROC: 10D00Z1 Extraction of Products of Conception, Low, Open Approach (ICD-10-PCS; CPT 59514; principal; 2021-09-05 07:30)
DX: O34.211 Maternal care for low transverse scar from previous cesarean delivery (principal); O99.02 Anemia complicating childbirth; Z37.0 Single live birth; Z3A.39 39 weeks gestation of pregnancy; D64.9 Anemia, unspecified; O72.2 Delayed and secondary postpartum hemorrhage; O99.824 Streptococcus B carrier state complicating childbirth
CPT/HCPCS: 36415; 85014; 85018; 85025; A9270; J0690; J1885; J2210; J2274; J2405; J2590; J3010; J7120

== ENCOUNTER 2021-12-02 11:04 | Emergency (ER) | payer OTHER, SELFPAY ==
[2021-12-02 11:06] VITALS: BP 106/70; PULSE 72; RESP 16; TEMP 36.5; O2SAT 100
[2021-12-02 11:25] LABS: Appearance Urine Clear (Clear); Bilirubin Urine Negative (Negative); Blood Urine 2+ (Negative); Color Urine Yellow (Yellow); Glucose Urine UA Negative (Negative); Ketones Urine Negative (Negative); Leukocyte Esterase Ur Negative LEU/UL (Negative); Nitrate Urine Negative (Negative); Protein Urine Negative (Negative); Specific Grav Ur 1.025 (1.001-1.035); Urobilinogen Urine 0.2 mg/dL (<2.0); pH Urine 5.5 (5.0-9.0)
--- NOTE | 2021-12-02 11:35 | ED.FEMALEGU ---
HPI - Female Genitourinary General Chief complaint: Urogenital-Female Stated complaint: UTI Time Seen by Provider: 12/02/21 11:16 History of Present Illness HPI Narrative: 21-year-old female presents to the ER today for complaints of generalized abdominal pain that started over the past few days. She was worried that she had a UTI because she is also had some intermittent flank pain as well. No flank pain today. She has had some urgency and dysuria off and on. No fever or chills. No nausea, vomiting or diarrhea. She says that the pain is mostly under her ribs on both sides. And describes it as sharp. She has not taken anything at home for the pain. Related Data Home Medications Medication Instructions Recorded Confirmed ferrous sulfate 325 mg (65 mg 325 mg PO DAILY 08/08/21 08/08/21 iron) tablet prenat.vits,josselin,mgb-xwmo-lthnb 1 tablet PO DAILY 08/08/21 08/08/21 Allergies Allergy/AdvReac Type Severity Reaction Status Date / Time No Known Allergies Allergy Verified 08/08/21 13:35 Review of Systems Review of Systems: CONSTITUTIONAL: Denies fever, chills, or sweats. EYES: Denies visual changes, redness, or discharge. ENT: Denies rhinorrhea, congestion, sore throat, or otalgia. CARDIOVASCULAR: Denies chest pain, palpitations, or edema. RESPIRATORY: Denies cough or dyspnea. GASTROINTESTINAL: As per HPI GENITOURINARY: As per HPI. SKIN: Denies rash or itching. MUSCULOSKELETAL: Denies back pain, joint pain, or myalgia. NEUROLOGIC: Denies headache, numbness, dizziness, or weakness. PSYCHIATRIC: Denies anxiety or depression. [facility] Past Medical History Medical History Complex regional pain syndrome Ganglion cyst of foot Surgical History Surgical History H/O section Family History Family History Sibling Hypermobility of joint Migraines ADHD Asthma Seizures Unknown No problems noted. Grandparent Colon cancer Heart disease Social History Social History Smoking status: Former smoker Tobacco type: e-cigarettes/vaping Second hand tobacco smoke exposure: No Alcohol intake: current Substance use: never Gender identity (if verbalized by the patient): Female Spiritual care concerns: No Exam Narrative: GENERAL: Well-appearing, well-nourished, and in no acute distress. HEAD: Normocephalic, atraumatic. NECK: Supple. No adenopathy or masses. No carotid bruits or JVD CHEST: Clear to auscultation. No respiratory distress. No wheezes rales or rhonchi HEART: Regular rate and rhythm. No murmur heard. Normal peripheral pulses. ABDOMEN: Soft, nontender, nondistended, normal active bowel sounds. EXTREMITIES: Normal range of motion. No edema. SKIN: Warm, dry, no rash. NEURO: No focal deficits. Alert and oriented x3. PSYCH: Normal mood and affect. Course Vital Signs Vital signs: Vital Signs Temperature 36.5 C 12/02/21 11:06 Pulse Rate 72 12/02/21 11:06 Respiratory Rate 16 12/02/21 11:06 Blood Pressure 106/70 12/02/21 11:06 Pulse Oximetry 100 12/02/21 11:06 Oxygen Delivery Room Air 12/02/21 11:06 Temperature 36.5 C 12/02/21 11:06 Pulse Rate 72 12/02/21 11:06 Respiratory Rate 16 12/02/21 11:06 Blood Pressure 106/70 12/02/21 11:06 Pulse Oximetry 100 12/02/21 11:06 Oxygen Delivery Room Air 12/02/21 11:06 MDM - Female Genitourinary Lab Data Attestation: I reviewed the patient's lab results. Result diagrams: 12/02/21 12:47 12/02/21 12:47 Labs: Lab Results 12/02/21 12/02/21 12/02/21 Range/Units 11:15 12:47 12:47 WBC 6.7 (4.5-10.0) K/mm3 RBC 4.95 (4.2-5.4) M/mm3 Hgb 13.4 D (12.0-15.0) g/dL Hct 41.7 (37.0-47.0) % MCV 84.2 (80-100) fl
[2021-12-02 11:42] LABS: Mucus Urine Rare /lpf; Squamous Epithelial Cell Urine Occasional /hpf (Few); WBC Urine 0-3 /hpf
[2021-12-02 11:43] LABS: Add Urine Microscopic? YES
[2021-12-02] MEDS: NAPROXEN 250 MG TABLET 500 MG PO (12:55)
[2021-12-02 13:01] LABS: Basophils Absolute Auto 0.1 K/mm3 (0.0-0.1); Basophils Percent Auto 0.8 % (0.2-1.2); Eosinophils Absolute Auto 0.1 K/mm3 (0-0.3); Eosinophils Percent Auto 2.1 % (0-4.4); Hematocrit 41.7 % (37.0-47.0); Hemoglobin 13.4 g/dL (12.0-15.0); Immature Granulocyte Absolute 0.02 K/mm3 (0.00-0.031); Immature Granulocyte Percent A 0.3 % (0-0.5); Lymphocytes Absolute Auto 3.07 K/mm3 (0.9-3.2); Lymphocytes Percent Auto 46.1 % (18.3-44.2); Mean Corpuscular HGB Conc 32.1 g/dl (32-36); Mean Corpuscular Hemoglobin 27.1 pg (26-34); Mean Corpuscular Volume 84.2 fl (80-100); Mean Platelet Volume 10.8 fl (7.4-10.4); Monocytes Absolute Auto 0.5 K/mm3 (0.1-0.6); Monocytes Percent Auto 7.5 % (2.6-8.5); Neutrophils Absolute Auto 2.9 K/mm3 (1.3-6.7); Neutrophils Percent Auto 43.2 % (45.5-73.1); Platelet Count Result 217 k/mm3 (150-375); Red Blood Count 4.95 M/mm3 (4.2-5.4); Red Cell Distribution Width 15.2 % (11.5-14.5); White Blood Count 6.7 K/mm3 (4.5-10.0)
[2021-12-02 13:10] LABS: Alanine Aminotransferase 40 U/L (6-35); Alkaline Phosphatase 84 U/L (38-126); Anion Gap 14 mmol/L (8-16); Aspartate Amino Transferase 33 U/L (14-36); Bilirubin,Total 0.4 mg/dL (0.2-1.3); Blood Urea Nitrogen 13 mg/dL (7-17); Calcium 9.7 mg/dL (8.4-10.2); Carbon Dioxide 24 mmol/L (22-30); Chloride 105 mmol/L (98-107); Estimated Glomerular Filt Rate > 60; Glucose 83 mg/dL (65-110); Lipase 87 U/L (23-300); Potassium 3.9 mmol/L (3.4-5.0); Sodium 143 mmol/L (137-145)
== END 2021-12-02 13:50 | disposition home or self-care (01) ==
PROVIDERS: General Practice; Emergency Provider Nurse Practitioner Family; PCP Family Medicine
DX: R10.84 Generalized abdominal pain (principal); Z87.891 Personal history of nicotine dependence
CPT/HCPCS: 36415; 80053; 81001; 81025; 83690; 85025; 99283; A9270

== ENCOUNTER 2022-05-24 14:40 | Outpatient (CLI) | payer OTHER, SELFPAY ==
--- NOTE | ~2022-05-24 | XR_ITS ---
XR lumbar spine 6V w bending DATE: 05/24/2022 15:04 INDICATION: Low back pain. No injury. TECHNIQUE: Standing AP, lateral, coned lateral lumbosacral and bilateral oblique views. Flexion and e xtension standing lateral views. COMPARISON: None FINDINGS: There is mild rotatory levoscoliosis of the lumbar spine. No fracture or bone destruction, spondylolysis or spondylolisthesis. Lumbar and lumbosacral interspaces are well preserved. No instabi lity on flexion or extension. The sacroiliac joints are normal. 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 NCIAL WRITER
[2022-05-24 15:13] LABS: Hematocrit 42.7 % (37.0-47.0); Hemoglobin 13.7 g/dL (12.0-15.0); Mean Corpuscular HGB Conc 32.1 g/dl (32-36); Mean Corpuscular Hemoglobin 28.2 pg (26-34); Mean Platelet Volume 11.4 fl (7.4-10.4); Platelet Count Result 240 k/mm3 (150-375); Red Blood Count 4.85 M/mm3 (4.2-5.4); Red Cell Distribution Width 13.2 % (11.5-14.5); White Blood Count 7.4 K/mm3 (4.5-10.0)
[2022-05-24 15:18] LABS: Alanine Aminotransferase 14 U/L (6-35); Albumin Level 4.7 g/dL (3.5-5.1); Alkaline Phosphatase 97 U/L (38-126); Anion Gap 8 mmol/L (8-16); Aspartate Amino Transferase 20 U/L (14-36); Bilirubin,Total 0.6 mg/dL (0.2-1.3); Blood Urea Nitrogen 15 mg/dL (7-17); Calcium 9.1 mg/dL (8.4-10.2); Carbon Dioxide 24 mmol/L (22-30); Chloride 106 mmol/L (98-107); Estimated Glomerular Filt Rate > 60; Glucose 87 mg/dL (65-110); Potassium 4.2 mmol/L (3.4-5.0); Sodium 138 mmol/L (137-145)
== END 2022-05-24 14:41 | disposition home or self-care (01) ==
LOC: ANHLAB 14:42
PROVIDERS: PCP Family Medicine; Visit Provider Family Medicine
DX: M54.50 Low back pain, unspecified (principal); G57.72 Causalgia of left lower limb; D64.9 Anemia, unspecified
CPT/HCPCS: 36415; 72114; 80053; 82607; 84443; 85027

== ENCOUNTER 2023-03-20 09:57 | Outpatient (CLI) | payer OTHER, SELFPAY ==
[2023-03-20 11:12] LABS: Erythrocyte Sedimentation Rate 16 mm/hr (0-20)
== END 2023-03-20 09:58 | disposition home or self-care (01) ==
PROVIDERS: PCP Family Medicine; Visit Provider Family Medicine
DX: M79.604 Pain in right leg (principal); M79.605 Pain in left leg
CPT/HCPCS: 36415; 85652

== ENCOUNTER 2023-06-26 10:27 | Outpatient (CLI) | payer OTHER, SELFPAY ==
--- NOTE | ~2023-06-26 | XR_ITS ---
Left Hand Technique: PA, oblique, and lateral views were obtained. Clinical History: Lumps Findings: No acute fracture or dislocation is seen. Osseous alignment is anatomic. Joint spaces are p reserved. Soft tissues are unremarkable. Impression: Unremarkable left hand. Reviewed, dictated and finalized at location M. Impression: Unremarkable left hand.
== END 2023-06-26 10:28 | disposition home or self-care (01) ==
PROVIDERS: PCP Family Medicine; Visit Provider Family Medicine
DX: M79.642 Pain in left hand (principal)
CPT/HCPCS: 73130

== ENCOUNTER 2023-11-05 14:22 | Outpatient (CLI) | payer OTHER, SELFPAY ==
--- NOTE | ~2023-11-05 | MR_ITS ---
EXAMINATION: MR wrist LT wo/w con DATE: 11/05/2023 15:40 INDICATION: Left dorsal wrist mass. TECHNIQUE: Magnetic resonance imaging (MRI) of the left wrist was performed without and with 17 mL Mu ltihance intravenous contrast. Sequences performed include axial PD-weighted FSE, PD-weighted FS FSE, T1-weighted FS FSE, coronal PD-weighted FS FSE and T1-weighted SE and sagittal PD-weighted FS FSE an d PD-weighted FSE. Postcontrast axial, sagittal and coronal T1-weighted FS FSE were also obtained. COMPARISON: None FINDINGS: Intrinsic ligaments: The scapholunate and lunotriquetral ligaments are normal. Triangular fibrocartilage complex (TFCC): The triangular fibrocartilage including its foveal and styloid attachments as well as the volar radio ulnar ligament are normal. Focal mild increased signal at the ulnar styloid side of the dorsal radiou lnar ligament consistent with partial tear. The ulnotriquetral ligament is normal. The extensor carpi ulnaris tendon sheath is normal. Extensor wrist: Extensor tendons of the wrist are normal. No tenosynovitis. Flexor wrist: The flexor tendons of the wrist are normal. No abnormality in the carpal tunnel with normal median n erve. Guyon's canal: Guyon's canal including the ulnar nerve and artery are normal. Bones/other: Normal marrow signal. No fracture, erosions, avascular necrosis or abnormal marrow replacing process. Joint spaces are normal with no focal cartilage defects appreciated. No ganglion cysts or other abn ormal masses or fluid collections identified. IMPRESSION: 1. Suggestion of partial tear of the dorsal radioulnar ligament components of the triangular fibrocar tilage complex. Reviewed, dictated and finalized at location A. IMPRESSION: 1. Suggestion of partial tear of the dorsal radioulnar ligament components of t he triangular fibrocartilage complex.
== END 2023-11-05 14:23 | disposition home or self-care (01) ==
PROVIDERS: PCP Family Medicine; Visit Provider Plastic Surgery
DX: M67.432 Ganglion, left wrist (principal)
CPT/HCPCS: 73223; A9577

== ENCOUNTER 2023-11-27 10:33 | Outpatient (CLI) | payer OTHER, SELFPAY ==
[2023-11-27 10:51] LABS: Basophils Absolute Auto 0.1 K/mm3 (0.0-0.1); Basophils Percent Auto 0.8 % (0.2-1.2); Eosinophils Absolute Auto 0.1 K/mm3 (0-0.3); Eosinophils Percent Auto 1.4 % (0-4.4); Hematocrit 42.2 % (37.0-47.0); Hemoglobin 13.9 g/dL (12.0-15.0); Immature Granulocyte Absolute 0.01 K/mm3 (0.00-0.031); Immature Granulocyte Percent A 0.1 % (0-0.5); Lymphocytes Absolute Auto 2.39 K/mm3 (0.9-3.2); Lymphocytes Percent Auto 33.5 % (18.3-44.2); Mean Corpuscular HGB Conc 32.9 g/dl (32-36); Mean Corpuscular Hemoglobin 28.3 pg (26-34); Mean Corpuscular Volume 85.8 fl (80-100); Mean Platelet Volume 11.1 fl (7.4-10.4); Monocytes Absolute Auto 0.7 K/mm3 (0.1-0.6); Monocytes Percent Auto 10.1 % (2.6-8.5); Neutrophils Absolute Auto 3.9 K/mm3 (1.3-6.7); Neutrophils Percent Auto 54.1 % (45.5-73.1); Platelet Count Result 220 k/mm3 (150-375); Red Blood Count 4.92 M/mm3 (4.2-5.4); Red Cell Distribution Width 13.2 % (11.5-14.5); White Blood Count 7.1 K/mm3 (4.5-10.0)
[2023-11-27 11:02] LABS: Anion Gap 10 mmol/L (4-12); Blood Urea Nitrogen 11 mg/dL (7-17); Calcium 9.4 mg/dL (8.4-10.2); Carbon Dioxide 25 mmol/L (22-30); Chloride 102 mmol/L (98-107); Estimated Glomerular Filt Rate > 60; Glucose 71 mg/dL (65-110); Potassium 3.9 mmol/L (3.4-5.0); Sodium 137 mmol/L (137-145)
[2023-11-27 11:20] LABS: Erythrocyte Sedimentation Rate 7 mm/hr (0-20)
[2023-11-28 14:09] LABS: CRP, High Sensitivity 3.1 mg/L
[2023-11-30 10:58] LABS: Anti Nuclear Antibody Titer 1:40 titer
== END 2023-11-27 10:34 | disposition home or self-care (01) ==
PROVIDERS: PCP Family Medicine; Visit Provider Family Medicine
DX: R20.0 Anesthesia of skin (principal)
CPT/HCPCS: 36415; 80048; 82607; 84443; 85025; 85652; 86038; 86039; 86141

== ENCOUNTER 2024-01-15 17:49 | Emergency (ER) | payer OTHER, SELFPAY ==
--- NOTE | ~2024-01-15 | US_ITS ---
Pelvic ultrasound. Clinical History: Pelvic pain, torsion Technique: Realtime transabdominal and transvaginal scanning of the pelvis was performed. Color flow Doppler and Doppler spectral analysis were performed. Findings: The uterus is anteverted. The endometrial stripe has a thickness of 7 mm. No focal mass is identified. The right ovary measures 2.7 x 1.2 x 2.8 cm. No significant right ovarian or adnexal mass is seen. The left ovary measures 5.2 x 3.2 x 4.9 cm. Left ovarian cyst measures 5.0 x 3.4 x 4.3 cm, with some internal echoes, compatible with resolving hemorrhagic cyst. Vascular flow present in both ovaries on Doppler spectral analysis. There is small amount of free fluid in the pelvis. Impression: No evidence of torsion. 5.0 cm hemorrhagic left ovarian cyst. Small amount of free fluid. Reviewed, dictated and finalized at [facility]. Impression: No evidence of torsion. 5.0 cm hemorrhagic left ovarian cyst. Small amount of free fluid.
--- NOTE | ~2024-01-15 | CT_ITS ---
EXAMINATION: CT abdomen pelvis w con DATE: 01/15/2024 23:48 INDICATION: Abdominal pain TECHNIQUE: Computed tomography (CT) of the abdomen and pelvis was performed with 100 mL Omnipaque-350 intravenous contrast. Automated exposure control and iterative reconstruction technique were employe d. The dose-length product was 177.86 mGy-cm. COMPARISON: 08/25/2020. FINDINGS: Lower thorax: Unremarkable Liver: Normal. Biliary/Gallbladder: Gallbladder is normal. No bile duct dilation. Pancreas: No mass or duct dilation. Spleen: Normal. Adrenals:No mass. Kidneys: No suspicious mass, obstructing stone, or hydronephrosis. GI tract: No small or large bowel dilation. Normal appendix. Mesentery/Peritoneum: No ascites, mass, or free air. Retroperitoneum: No mass. Pelvis: Normal urinary bladder and uterus. Corpus luteal cyst on the right. Simple appearing 5.0 cm l eft ovarian cyst. Small volume fluid in the deep pelvis within physiologic range. Prominent pelvic ve ins. Prominent bilateral gonadal veins, with asymmetric gonadal vein enhancement, greater on the left . Soft Tissues: Soft tissues and body wall unremarkable. Bones: No acute osseous finding. IMPRESSION: 5.0 cm simple appearing left ovarian cyst. Prominent pelvic and bilateral gonadal veins, which could be due to pelvic congestion or infection. Recent ovarian torsion could also be considered in the appropriate clinical context, given the asymme tric gonadal vein enhancement and a potential lead point on the left. No twisting of either the right or left ovarian vascular pedicles to suggest current ovarian torsion. Reviewed, dictated and finalized at [facility]. IMPRESSION: 5.0 cm simple appearing left ovarian cyst. Prominent pelvic and bilateral gonadal veins, which could be due to pelvic kati estion or infection. Recent ovarian torsion could also be considered in the appropriate clinical con text, given the asymmetric gonadal vein enhancement and a potential lead point on the left. No twisting of either the right or left ovarian vascular pedicles to suggest current ovarian torsion.
--- NOTE | ~2024-01-15 | XR_ITS ---
EXAM: XR abdomen/kub 1V DATE: 01/15/2024 20:24 HISTORY: abdominal, back pain . COMPARISON: CT abdomen pelvis 08/25/2020. FINDINGS: Normal bowel gas pattern. No organomegaly. No abnormal abdominal calcification. Regional b ones and soft tissues normal for age. IMPRESSION: No radiographic evidence of obstruction or ileus. Reviewed, dictated and finalized at location [facility].
[2024-01-15 17:53] VITALS: BP 110/75; PULSE 90; RESP 16; TEMP 36.6; O2SAT 100
--- NOTE | 2024-01-15 19:32 | ED.GENADULT ---
HPI - General Adult General Chief complaint: Unspecified <Julianne Scruggs APRN - Last Filed: 01/15/24 19:34> Stated complaint: multiple complaints <Julianne Scruggs APRN - Last Filed: 01/15/24 19:34> Time Seen by Provider: 01/15/24 19:15 <Julianne Scruggs APRN - Last Filed: 01/15/24 19:34> Focused HPI: Patient is a 23-year-old female who presents to the ER with complaints of abdominal pain, back pain, sore throat and low-grade fever. She reports her abdominal and back pain started yesterday. She reports her sore throat and low-grade fever were this morning. Patient denies cough, chest pain, swelling. She reports she has a history of ganglion cyst, frequent UTIs, and MICHAEL, and 2 C sections. Patient reports she has not been sexually active for 2 years, but is 9 days late for my period. She reports her last bowel movement was earlier today and was normal for her. GENERAL: Well-appearing, well-nourished, and in no acute distress. HEAD: Normocephalic, atraumatic. CHEST: Clear to auscultation. ?No respiratory distress. HEART: Regular rate and rhythm.? NEURO: ?Alert and oriented x3. Patient screened in triage and initial orders placed.? ?Additional care and disposition to be based upon?diagnostic testing and treatment. <Julianne Scruggs APRN - Last Filed: 01/15/24 19:34> History of Present Illness HPI narrative: Patient is a 24-year-old female who presents emergency department chief complaint of abdominal pain. Patient reports had a low-grade fever some back pain also urinary symptoms. Patient reports that she is 9 days late for her. Does report that she had frequent UTI also had pyelonephritis before in the past. <Jeronimo Arreaga MD - Last Filed: 01/16/24 03:38> Related Data Home medications: Home Medications Medication Instructions Recorded Confirmed drospirenone (contraceptive) 4 mg 1 tablet PO DAILY 02/23/22 11/27/23 (28) tablet (Slynd) <Julianne Scruggs APRN - Last Filed: 01/15/24 19:34> Allergies/adverse reactions: Allergies Allergy/AdvReac Type Severity Reaction Status Date / Time No Known Allergies Allergy Verified 01/15/24 22:35 <Julianne Scruggs APRN - Last Filed: 01/15/24 19:34> Review of Systems Review of Systems: A 10 system review of systems was completed on the patient and is negative except for what is stated in the HPI. Nursing and ancillary documentation was reviewed. <Jeronimo Arreaga MD - Last Filed: 01/16/24 03:38> [facility] Past Medical History Medical History: Medical History Anxiety Bilateral leg numbness Complex regional pain syndrome Ganglion cyst of foot Leg pain, bilateral Leg weakness, bilateral Low back pain <Julianne Scruggs APRN - Last Filed: 01/15/24 19:34> Surgical History Surgical History: Surgical History H/O section <Julianne Scruggs APRN - Last Filed: 01/15/24 19:34> Family History Family History: Family History Sibling Hypermobility of joint Migraines ADHD Asthma Seizures Grandparent Colon cancer Heart disease Father No problems noted. Mother Chronic pain Tendon tear Depression <Julianne Scruggs APRN - Last Filed: 01/15/24 19:34> Social History Social History: Social History Smoking status: Current every day smoker Tobacco type: e-cigarettes/vaping Second hand tobacco smoke exposure: Yes Alcohol intake: current Substance use: never Substance use type: does not use Do You Feel Safe in your Home?: Yes Lack of Transportation: No Lack of Food: Never True Current Housing: I Have Housing Concerned About Future Housing: No Difficulty Paying Gas/Electric Bills: No Difficulty Paying for Meds: No Currently Unemployed: No Education: High School Diploma/GED Difficulty w/ Childcare or Family Care: No Living arrangements: with family Occupation/Education: occupation 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 HEAD: Normocephalic, atraumatic. EYES: PERRLA and EOMI. ENT: Nares clear, no rhinorrhea or epistaxis. Mucous membranes moist. NECK: Supple. CHEST: Clear to auscultation. No respiratory distress. HEART: Regular rate and rhythm. No murmur heard. Normal peripheral pulses. ABDOMEN: Soft, diffuse mild tenderness to, nondistended, normal active bowel sounds. EXTREMITIES: Normal range of motion. No edema. SKIN: Warm, dry, no rash. NEURO: No focal deficits. Alert and oriented x3. PSYCH: Normal mood and affect. <Jeronimo Arreaga MD - Last Filed: 01/16/24 03:38> Course Vital Signs Vital signs: Vital Signs Temperature 36.6 C 01/15/24 17:53 Pulse Rate 90 01/15/24 17:53 Respiratory Rate 16 01/15/24 17:53 Blood Pressure 110/75 01/15/24 17:53 Pulse Oximetry 100 01/15/24 17:53 Oxygen Delivery Room Air 01/15/24 17:53 Temperature 36.6 C 01/15/24 17:53 Pulse Rate 80 01/16/24 01:00 Respiratory Rate 16 01/16/24 01:00 Blood Pressure 109/64 01/16/24 01:00 Pulse Oximetry 97 01/16/24 01:00 Oxygen Delivery Room Air 01/15/24 22:35 <Julianne Scruggs APRN - Last Filed: 01/15/24 19:34> Vital Signs Temperature 36.6 C 01/15/24 17:53 Pulse Rate 90 01/15/24 17:53 Respiratory Rate 16 01/15/24 17:53 Blood Pressure 110/75 01/15/24 17:53 Pulse Oximetry 100 01/15/24 17:53 Oxygen Delivery Room Air 01/15/24 17:53 Temperature 36.6 C 01/15/24 17:53 Pulse Rate 80 01/16/24 01:00 Respiratory Rate 16 01/16/24 01:00 Blood Pressure 109/64 01/16/24 01:00 Pulse Oximetry 97 01/16/24 01:00 Oxygen Delivery Room Air 01/15/24 22:35 <Jeronimo Arreaga MD - Last Filed: 01/16/24 03:38> Medical Decision Making MDM Narrative Medical decision making narrative: Differential diagnosis includes pyelonephritis, UTI, intra-abdominal infection, appendicitis, ovarian torsion, Laboratory studies were obtained on the patient showed a white count of 10.1 electrolytes are within normal limits urinalysis showed evidence of urinary tract infection COVID flu and RSV were negative CT scan of the abdomen pelvis showed 5.0 cm simple appearing left ovarian cyst. Prominent pelvic and bilateral gonadal veins, which could be due to pelvic congestion or infection. Recent ovarian torsion could also be considered in the appropriate clinical context, given the asymmetric gonadal vein enhancement and a potential lead point on the left. No twisting of either the right or left ovarian vascular pedicles to suggest current ovarian torsion. A pelvic ultrasound was obtained that showed no evidence of torsion Patient was started on Keflex for the UTI and will be discharged to follow-up with her primary care provider <Jeronimo Arreaga MD - Last Filed: 01/16/24 03:38> Vital Signs Vital Signs: Vital Signs Temperature 36.6 C 01/15/24 17:53 Pulse Rate 90 01/15/24 17:53 Respiratory Rate 16 01/15/24 17:53 Blood Pressure 110/75 01/15/24 17:53 Pulse Oximetry 100 01/15/24 17:53 Oxygen Delivery Room Air 01/15/24 17:53 Temperature 36.6 C 01/15/24 17:53 Pulse Rate 80 01/16/24 01:00 Respiratory Rate 16 01/16/24 01:00 Blood Pressure 109/64 01/16/24 01:00 Pulse Oximetry 97 01/16/24 01:00 Oxygen Delivery Room Air 01/15/24 22:35 <Jluianne Scruggs APRN - Last Filed: 01/15/24 19:34> Vital Signs Temperature 36.6 C 01/15/24 17:53 Pulse Rate 90 01/15/24 17:53 Respiratory Rate 16 01/15/24 17:53 Blood Pressure 110/75 01/15/24 17:53 Pulse Oximetry 100 01/15/24 17:53 Oxygen Delivery Room Air 01/15/24 17:53 Temperature 36.6 C 01/15/24 17:53 Pulse Rate 80 01/16/24 01:00 Respiratory Rate 16 01/16/24 01:00 Blood Pressure 109/64 01/16/24 01:00 Pulse Oximetry 97 01/16/24 01:00 Oxygen Delivery Room Air 01/15/24 22:35 <Jeronimo Arreaga MD - Last Filed: 01/16/24 03:38> Lab Data Result diagrams: 01/15/24 22:55 01/15/24 22:55 <Julianne Scruggs APRN - Last Filed: 01/15/24 19:34> Labs: Lab Results 01/15/24 01/15/24 01/15/24 Range/Units 20:01 20:10 20:12 WBC (4.5-10.0) K/mm3 RBC (4.2-5.4) M/mm3 Hgb (12.0-15.0) g/dL Hct (37.0-47.0) % MCV (80-100) fl MCH (26-34) pg MCHC (32-36) g/dl RDW (11.5-14.5) % Plt Count (150-375) k/mm3 MPV (7.4-10.4) fl Immature Gran % (Auto) (0-0.5) % Neut % (Auto) (45.5-73.1) % Lymph % (Auto) (18.3-44.2) % [place] % (Auto) (2.6-8.5) % Eos % (Auto) (0-4.4) % Baso % (Auto) (0.2-1.2) % Lymph # (Auto) (0.9-3.2) K/mm3 [place] # (Auto) (0.1-0.6) K/mm3 Eos # (Auto) (0-0.3) K/mm3 Baso # (Auto) (0.0-0.1) K/mm3 Abs Immat Gran (auto) (0.00-0.031) K/mm3 Absolute Neuts (auto) (1.3-6.7) K/mm3 Absolute Nucleated RBC (0.0-0.012) K/mm3 Nucleated RBC % (0.0-0.2) % Sodium (137-145) mmol/L Potassium (3.4-5.0) mmol/L Chloride (98-107) mmol/L Carbon Dioxide (22-30) mmol/L Anion Gap (4-12) mmol/L BUN (7-17) mg/dL Creatinine (0.7-1.0) mg/dL Estim Creat Clear Calc Estimated GFR (59 - ) Glucose (65-110) mg/dL Calcium (8.4-10.2) mg/dL Total Bilirubin (0.2-1.3) mg/dL AST (14-36) U/L ALT (6-35) U/L Alkaline Phosphatase (38-126) U/L Total Protein (6.3-8.2) g/dL Albumin (3.5-5.1) g/dL Lipase (23-300) U/L Urine Color Yellow (Yellow) Urine Appearance Clear (Clear) Urine pH 7.0 (5.0-9.0) Ur Specific [place] 1.016 (1.001-1.035) Urine Protein Negative (Negative) mg/dL Urine Glucose (UA) Negative (Negative) mg/dL Urine Ketones Negative (Negative) mg/dL Ur Blood (Man) Negative (Negative) Urine Nitrate Positive H (Negative) Urine Bilirubin Negative (Negative) Urine Urobilinogen 1.0 (<2.0) mg/dL Leukocyte Esterase Rfl Trace H (Negative) FRANK/UL Urine RBC 0-2 (0-2) /hpf Urine WBC 11-20 H (0-3) /hpf Ur Squamous Epith Cells Moderate (Few) /hpf Urine Bacteria 4+ H /hpf Urine Casts 0-2 POC Urine HCG, Qual Negative (Negative) Urine Test Negative Influenza A (RT-PCR) Negative (Negative) Influenza B (RT-PCR) Negative (Negative) RSV (RT-PCR) Negative (Negative) SARS-CoV-2 RNA (RT-PCR) Negative (Negative) Group A Strep (PCR) Not detected (Negative) 01/15/24 Range/Units 22:55 WBC 10.1 H (4.5-10.0) K/mm3 RBC 4.58 (4.2-5.4) M/mm3 Hgb 13.0 (12.0-15.0) g/dL Hct 38.6 (37.0-47.0) % MCV 84.3 (80-100) fl MCH 28.4 (26-34) pg MCHC 33.7 (32-36) g/dl RDW 13.8 (11.5-14.5) % Plt Count 247 (150-375) k/mm3 MPV 11.6 H (7.4-10.4) fl Immature Gran % (Auto) 0.3 (0-0.5) % Neut % (Auto) 72.0 (45.5-73.1) % Lymph % (Auto) 21.9 (18.3-44.2) % [place] % (Auto) 4.6 (2.6-8.5) % Eos % (Auto) 0.6 (0-4.4) % Baso % (Auto) 0.6 (0.2-1.2) % Lymph # (Auto) 2.21 (0.9-3.2) K/mm3 [place] # (Auto) 0.5 (0.1-0.6) K/mm3 Eos # (Auto) 0.1 (0-0.3) K/mm3 Baso # (Auto) 0.1 (0.0-0.1) K/mm3 Abs Immat Gran (auto) 0.03 (0.00-0.031) K/mm3 Absolute Neuts (auto) 7.3 H (1.3-6.7) K/mm3 Absolute Nucleated RBC 0.000 (0.0-0.012) K/mm3 Nucleated RBC % 0.0 (0.0-0.2) % Sodium 136 L (137-145) mmol/L Potassium 3.5 (3.4-5.0) mmol/L Chloride 103 (98-107) mmol/L Carbon Dioxide 24 (22-30) mmol/L Anion Gap 9 (4-12) mmol/L BUN 6 L D (7-17) mg/dL Creatinine 0.50 L (0.7-1.0) mg/dL Estim Creat Clear Calc Not Reportable Estimated GFR > 60 (59 - ) Glucose 100 (65-110) mg/dL Calcium 8.9 (8.4-10.2) mg/dL Total Bilirubin 0.5 (0.2-1.3) mg/dL AST 18 (14-36) U/L ALT 13 (6-35) U/L Alkaline Phosphatase 65 (38-126) U/L Total Protein 8.0 (6.3-8.2) g/dL Albumin 4.3 (3.5-5.1) g/dL Lipase 45 (23-300) U/L Urine Color (Yellow) Urine Appearance (Clear) Urine pH (5.0-9.0) Ur Specific [place] (1.001-1.035) Urine Protein (Negative) mg/dL Urine Glucose (UA) (Negative) mg/dL Urine Ketones (Negative) mg/dL Ur Blood (Man) (Negative) Urine Nitrate (Negative) Urine Bilirubin (Negative) Urine Urobilinogen (<2.0) mg/dL Leukocyte Esterase Rfl (Negative) FRANK/UL Urine RBC (0-2) /hpf Urine WBC (0-3) /hpf Ur Squamous Epith Cells (Few) /hpf Urine Bacteria /hpf Urine Casts POC Urine HCG, Qual (Negative) Urine Test Influenza A (RT-PCR) (Negative) Influenza B (RT-PCR) (Negative) RSV (RT-PCR) (Negative) SARS-CoV-2 RNA (RT-PCR) (Negative) Group A Strep (PCR) (Negative) <Julianne Scruggs, CHRONIC SPECIALIST - Last Filed: 01/15/24 19:34> Lab Results 01/15/24 01/15/24 01/15/24 Range/Units 20:01 20:10 20:12 WBC (4.5-10.0) K/mm3 RBC (4.2-5.4) M/mm3 Hgb (12.0-15.0) g/dL Hct (37.0-47.0) % MCV (80-100) fl MCH (26-34) pg MCHC (32-36) g/dl RDW (11.5-14.5) % Plt Count (150-375) k/mm3 MPV (7.4-10.4) fl Immature Gran % (Auto) (0-0.5) % Neut % (Auto) (45.5-73.1) % Lymph % (Auto) (18.3-44.2) % [place] % (Auto) (2.6-8.5) % Eos % (Auto) (0-4.4) % Baso % (Auto) (0.2-1.2) % Lymph # (Auto) (0.9-3.2) K/mm3 [place] # (Auto) (0.1-0.6) K/mm3 Eos # (Auto) (0-0.3) K/mm3 Baso # (Auto) (0.0-0.1) K/mm3 Abs Immat Gran (auto) (0.00-0.031) K/mm3 Absolute Neuts (auto) (1.3-6.7) K/mm3 Absolute Nucleated RBC (0.0-0.012) K/mm3 Nucleated RBC % (0.0-0.2) % Sodium (137-145) mmol/L Potassium (3.4-5.0) mmol/L Chloride (98-107) mmol/L Carbon Dioxide (22-30) mmol/L Anion Gap (4-12) mmol/L BUN (7-17) mg/dL Creatinine (0.7-1.0) mg/dL Estim Creat Clear Calc Estimated GFR (59 - ) Glucose (65-110) mg/dL Calcium (8.4-10.2) mg/dL Total Bilirubin (0.2-1.3) mg/dL AST (14-36) U/L ALT (6-35) U/L Alkaline Phosphatase (38-126) U/L Total Protein (6.3-8.2) g/dL Albumin (3.5-5.1) g/dL Lipase (23-300) U/L Urine Color Yellow (Yellow) Urine Appearance Clear (Clear) Urine pH 7.0 (5.0-9.0) Ur Specific [place] 1.016 (1.001-1.035) Urine Protein Negative (Negative) mg/dL Urine Glucose (UA) Negative (Negative) mg/dL Urine Ketones Negative (Negative) mg/dL Ur Blood (Man) Negative (Negative) Urine Nitrate Positive H (Negative) Urine Bilirubin Negative (Negative) Urine Urobilinogen 1.0 (<2.0) mg/dL Leukocyte Esterase Rfl Trace H (Negative) FRANK/UL Urine RBC 0-2 (0-2) /hpf Urine WBC 11-20 H (0-3) /hpf Ur Squamous Epith Cells Moderate (Few) /hpf Urine Bacteria 4+ H /hpf Urine Casts 0-2 POC Urine HCG, Qual Negative (Negative) Urine Test Negative Influenza A (RT-PCR) Negative (Negative) Influenza B (RT-PCR) Negative (Negative) RSV (RT-PCR) Negative (Negative) SARS-CoV-2 RNA (RT-PCR) Negative (Negative) Group A Strep (PCR) Not detected (Negative) 01/15/24 Range/Units 22:55 WBC 10.1 H (4.5-10.0) K/mm3 RBC 4.58 (4.2-5.4) M/mm3 Hgb 13.0 (12.0-15.0) g/dL Hct 38.6 (37.0-47.0) % MCV 84.3 (80-100) fl MCH 28.4 (26-34) pg MCHC 33.7 (32-36) g/dl RDW 13.8 (11.5-14.5) % Plt Count 247 (150-375) k/mm3 MPV 11.6 H (7.4-10.4) fl Immature Gran % (Auto) 0.3 (0-0.5) % Neut % (Auto) 72.0 (45.5-73.1) % Lymph % (Auto) 21.9 (18.3-44.2) % [place] % (Auto) 4.6 (2.6-8.5) % Eos % (Auto) 0.6 (0-4.4) % Baso % (Auto) 0.6 (0.2-1.2) % Lymph # (Auto) 2.21 (0.9-3.2) K/mm3 [place] # (Auto) 0.5 (0.1-0.6) K/mm3 Eos # (Auto) 0.1 (0-0.3) K/mm3 Baso # (Auto) 0.1 (0.0-0.1) K/mm3 Abs Immat Gran (auto) 0.03 (0.00-0.031) K/mm3 Absolute Neuts (auto) 7.3 H (1.3-6.7) K/mm3 Absolute Nucleated RBC 0.000 (0.0-0.012) K/mm3 Nucleated RBC % 0.0 (0.0-0.2) % Sodium 136 L (137-145) mmol/L Potassium 3.5 (3.4-5.0) mmol/L Chloride 103 (98-107) mmol/L Carbon Dioxide 24 (22-30) mmol/L Anion Gap 9 (4-12) mmol/L BUN 6 L D (7-17) mg/dL Creatinine 0.50 L (0.7-1.0) mg/dL Estim Creat Clear Calc Not Reportable Estimated GFR > 60 (59 - ) Glucose 100 (65-110) mg/dL Calcium 8.9 (8.4-10.2) mg/dL Total Bilirubin 0.5 (0.2-1.3) mg/dL AST 18 (14-36) U/L ALT 13 (6-35) U/L Alkaline Phosphatase 65 (38-126) U/L Total Protein 8.0 (6.3-8.2) g/dL Albumin 4.3 (3.5-5.1) g/dL Lipase 45 (23-300) U/L Urine Color (Yellow) Urine Appearance (Clear) Urine pH (5.0-9.0) Ur Specific [place] (1.001-1.035) Urine Protein (Negative) mg/dL Urine Glucose (UA) (Negative) mg/dL Urine Ketones (Negative) mg/dL Ur Blood (Man) (Negative) Urine Nitrate (Negative) Urine Bilirubin (Negative) Urine Urobilinogen (<2.0) mg/dL Leukocyte Esterase Rfl (Negative) FRANK/UL Urine RBC (0-2) /hpf Urine WBC (0-3) /hpf Ur Squamous Epith Cells (Few) /hpf Urine Bacteria /hpf Urine Casts POC Urine HCG, Qual (Negative) Urine Test Influenza A (RT-PCR) (Negative) Influenza B (RT-PCR) (Negative) RSV (RT-PCR) (Negative) SARS-CoV-2 RNA (RT-PCR) (Negative) Group A Strep (PCR) (Negative) <Jeronimo Arreaga MD - Last Filed: 01/16/24 03:38> Discharge Plan Discharge Clinical Impression: Ovarian cyst, UTI (urinary tract infection) <Julianne Scruggs APRN - Last Filed: 01/15/24 19:34> Patient Disposition: Home, Self-Care <Julianne Scruggs APRN - Last Filed: 01/15/24 19:34> Condition: Stable <Julianne Scruggs APRN - Last Filed: 01/15/24 19:34> Instructions: Antibiotic Form, Ovarian Cyst (ED), Urinary Tract Infection in Women (ED), Abdominal Pain (ED) <Julianne Scruggs APRN - Last Filed: 01/15/24 19:34> Additional Instructions: Please follow-up with your primary care provider, also follow-up with your OBGYN if your symptoms worsen please return to the emergency department <Julianne Scruggs APRN - Last Filed: 01/15/24 19:34> Prescriptions: New cephalexin 500 mg capsule 500 mg PO Q8H 7 Days Qty: 21 0RF No Action meloxicam 15 mg tablet See Rx Instructions .ROUTE .COMPLEX Qty: 30 0RF Dose Instruction: TAKE 1 TABLET BY MOUTH DAILY Rx Instructions: TAKE 1 TABLET BY MOUTH DAILY gabapentin 300 mg capsule 300 mg PO TID Qty: 120 2RF tramadol 50 mg tablet 50 mg PO Q8H MDD 150 PRN (Reason: pain, moderate) Qty: 30 0RF Slynd 4 mg (28) tablet 1 tablet PO DAILY ferrous sulfate 325 mg (65 mg iron) Tablet 324 mg PO DAILY@0800 0RF duloxetine 30 mg capsule,delayed release(DR/EC) 30 mg PO DAILY Qty: 90 1RF <Julianne Scruggs APRN - Last Filed: 01/15/24 19:34> Follow-up/Referrals: Gm Quiles MD [Primary Care Provider] - <Julianne Scruggs APRN - Last Filed: 01/15/24 19:34> Time of Disposition: 03:38 <Julianne Scruggs APRN - Last Filed: 01/15/24 19:34> 03:38 <Jeronimo Arreaga MD - Last Filed: 01/16/24 03:38>
[2024-01-15 20:15] LABS: BEDSIDEPREGUCG Negative (Negative)
[2024-01-15] MEDS: IBUPROFEN 600 MG TABLET PO (20:25)
[2024-01-15 20:37] LABS: Pregnancy On Board Control Positive; Urine Pregnancy Test Negative
[2024-01-15 20:52] LABS: Strep Group A RT-PCR NOT DETECTED (Negative)
[2024-01-15 21:05] LABS: Influenza A QL RT-PCR Negative (Negative); Influenza B QL RT-PCR Negative (Negative); RSV RNA, RT-PCR Negative (Negative); SARS-CoV-2 RNA PCR Negative (Negative)
[2024-01-15 21:12] LABS: Add Urine Microscopic? YES; Appearance Urine Clear (Clear); Bacteria Urine 4+ /hpf; Bilirubin Urine Negative (Negative); Blood Urine Negative (Negative); Color Urine Yellow (Yellow); Glucose Urine UA Negative (Negative); Ketones Urine Negative (Negative); Leukocyte Esterase Ur Trace LEU/UL (Negative); Nitrate Urine Positive (Negative); Non Pathogenic Casts 0-2; Protein Urine Negative (Negative); RBC Urine 0-2 /hpf (0-2); Specific Grav Ur 1.016 (1.001-1.035); Squamous Epithelial Cell Urine Moderate /hpf (Few)
[2024-01-15 22:03] VITALS: BP 121/78; PULSE 73; RESP 15; O2SAT 98
[2024-01-15 22:31] VITALS: BP 125/70; PULSE 81; RESP 14; O2SAT 98
[2024-01-15 22:35] VITALS: BP 125/70; PULSE 70; RESP 16; O2SAT 97
[2024-01-15 23:14] LABS: Basophils Absolute Auto 0.1 K/mm3 (0.0-0.1); Basophils Percent Auto 0.6 % (0.2-1.2); Eosinophils Absolute Auto 0.1 K/mm3 (0-0.3); Eosinophils Percent Auto 0.6 % (0-4.4); Hematocrit 38.6 % (37.0-47.0); Immature Granulocyte Absolute 0.03 K/mm3 (0.00-0.031); Immature Granulocyte Percent A 0.3 % (0-0.5); Lymphocytes Absolute Auto 2.21 K/mm3 (0.9-3.2); Lymphocytes Percent Auto 21.9 % (18.3-44.2); Mean Corpuscular HGB Conc 33.7 g/dl (32-36); Mean Corpuscular Hemoglobin 28.4 pg (26-34); Mean Corpuscular Volume 84.3 fl (80-100); Mean Platelet Volume 11.6 fl (7.4-10.4); Monocytes Absolute Auto 0.5 K/mm3 (0.1-0.6); Monocytes Percent Auto 4.6 % (2.6-8.5); Neutrophils Absolute Auto 7.3 K/mm3 (1.3-6.7); Platelet Count Result 247 k/mm3 (150-375); Red Blood Count 4.58 M/mm3 (4.2-5.4); Red Cell Distribution Width 13.8 % (11.5-14.5); White Blood Count 10.1 K/mm3 (4.5-10.0)
[2024-01-15 23:23] VITALS: BP 114/67; PULSE 75; RESP 20; O2SAT 97
[2024-01-15 23:29] LABS: Alanine Aminotransferase 13 U/L (6-35); Albumin Level 4.3 g/dL (3.5-5.1); Alkaline Phosphatase 65 U/L (38-126); Anion Gap 9 mmol/L (4-12); Aspartate Amino Transferase 18 U/L (14-36); Bilirubin,Total 0.5 mg/dL (0.2-1.3); Blood Urea Nitrogen 6 mg/dL (7-17); Calcium 8.9 mg/dL (8.4-10.2); Carbon Dioxide 24 mmol/L (22-30); Chloride 103 mmol/L (98-107); Estimated Glomerular Filt Rate > 60; Glucose 100 mg/dL (65-110); Lipase 45 U/L (23-300); Potassium 3.5 mmol/L (3.4-5.0); Sodium 136 mmol/L (137-145)
[2024-01-16] VITALS: BP 103/68; PULSE 77; RESP 15; O2SAT 98
[2024-01-16 01:00] VITALS: BP 109/64; PULSE 80; RESP 16; O2SAT 97
[2024-01-16 03:45] VITALS: BP 105/67; PULSE 102; RESP 18; O2SAT 98
[2024-01-16] MEDS: HYDROcodone/acetaminophen (*CRX) 5-325 MG TABLET 1 TAB PO (03:45)
[2024-01-16] MEDS: CEPHALEXIN 500 MG CAPSULE PO (03:45)
[2024-01-16 03:58] VITALS: RESP 18; O2SAT 97
== END 2024-01-16 04:00 | disposition home or self-care (01) ==
PROVIDERS: Registered Nurse; Emergency Provider Emergency Medicine; PCP Family Medicine
DX: N39.0 Urinary tract infection, site not specified (principal); N83.202 Unspecified ovarian cyst, left side; F17.290 Nicotine dependence, other tobacco product, uncomplicated; Z20.822 Contact with and (suspected) exposure to COVID-19
CPT/HCPCS: 36415; 74018; 74177; 76856; 80053; 81001; 81025; 83690; 85025; 87077; 87086; 87186; 87637; 87651; 99284; A9270; Q9967

== ENCOUNTER 2024-02-05 12:44 | Outpatient (CLI) | payer OTHER, SELFPAY ==
--- NOTE | 2024-02-05 14:00 | NEURO_ITS ---
Impression: # Complains of pain in lower extremities and at times no feeling at all. # Normal motor/sensory Nerve Conduction Study. # Normal needle/EMG exam without any neurogenic changes. # Clinical correlation recommended. Nerve Conduction Studies Anti Sensory Summary Table Stim Site NR Peak (ms) P-T Amp (?V) Site1 Site2 Delta-P (ms) Dist (cm) Ilan (m/s) Left Sup Fibular Anti Sensory (Ant Lat Mall) 14 cm 2.4 35.7 14 cm Ant Lat Mall 2.4 16.0 67 Right Sup Fibular Anti Sensory (Ant Lat Mall) 14 cm 2.7 46.6 14 cm Ant Lat Mall 2.7 16.0 59 Left Sural Anti Sensory (Lat Mall) Calf 2.8 29.7 Calf Lat Mall 2.8 16.0 57 Right Sural Anti Sensory (Lat Mall) Calf 3.5 25.1 Calf Lat Mall 3.5 16.0 46 Motor Summary Table Stim Site NR Onset (ms) O-P Amp (mV) Site1 Site2 Delta-0 (ms) Dist (cm) Ilan (m/s) Left Peroneal Motor (Vastus Med) Ankle 3.4 2.3 Popit Ankle 6.1 35.0 57 Popit 9.5 0.7 Right Peroneal Motor (Vastus Med) Ankle 3.1 0.9 Popit Ankle 6.2 32.0 52 Popit 9.3 0.8 Left Tibial Motor (Abd Davalos Brev) Ankle 3.4 12.2 Knee Ankle 6.7 36.0 54 Knee 10.1 5.2 Right Tibial Motor (Abd Davalos Brev) Ankle 3.4 12.9 Knee Ankle 5.8 35.0 60 Knee 9.2 10.1 F Wave Studies NR F-Lat (ms) L-R F-Lat (ms) Left Peroneal (Mrkrs) (EDB) 37.35 0.23 Right Peroneal (Mrkrs) (EDB) 37.58 0.23 Left Tibial (Mrkrs) (Abd Hallucis) 36.68 0.04 Right Tibial (Mrkrs) (Abd Hallucis) 36.72 0.04 EMG Side Muscle Nerve Root Ins Act Fibs Amp Dur Recrt Comment Right AntTibialis Dp Br Fibular L4-5 Nml Nml Nml Nml Nml Right Gastroc Tibial S1-2 Nml Nml Nml Nml Nml Right Fibularis Long Sup Br Fibular L5-S1 Nml Nml Nml Nml Nml Right Flex Dig Long Tibial L5-S2 Nml Nml Nml Nml Nml Right Ext Dig Brev Dp Br Fibular L5, S1 Nml Nml Nml Nml Nml Right QuadratusFem QuadFemoris L4-5, S1 Nml Nml Nml Nml Nml Left AntTibialis Dp Br Fibular L4-5 Nml Nml Nml Nml Nml Left Gastroc Tibial S1-2 Nml Nml Nml Nml Nml Left Fibularis Long Sup Br Fibular L5-S1 Nml Nml Nml Nml Nml Left Flex Dig Long Tibial L5-S2 Nml Nml Nml Nml Nml Left Ext Dig Brev Dp Br Fibular L5, S1 Nml Nml Nml Nml Nml Left QuadratusFem QuadFemoris L4-5, S1 Nml Nml Nml Nml Nml MTDD
== END 2024-02-05 12:45 | disposition home or self-care (01) ==
LOC: ANHNEURO 12:46
PROVIDERS: PCP Family Medicine; Visit Provider Family Medicine
DX: R20.0 Anesthesia of skin (principal); R29.898 Other symptoms and signs involving the musculoskeletal system
CPT/HCPCS: 95886; 95910